=== PATIENT | female | born 1980 | race Hispanic/Latino ===

== ENCOUNTER 2018-01-10 11:25 | Emergency (ER) | payer OTHER, SELFPAY ==
--- NOTE | 2018-01-10 13:28 | RAD REPORT ---
EXAM DESCRIPTION: Lumbar Spine 3 Views CLINICAL HISTORY: Radiculopathy COMPARISON: None. FINDINGS: Vertebral body heights appear maintained. No compression fracture noted. Prominent disc th inning is present with endplate osteophytes endplate sclerosis at L5-S1. Mild disc thinning with post erior osteophyte noted at L3-4 and L4-5. No spondylolysis or spondylolisthesis. IMPRESSION: No acute lumbar spine finding. Moderately severe spondylosis L5-S1.
[2018-01-10 13:41] LABS: Urine Bacteria NONE SEEN /HPF (<20); Urine Culture Reflex Order NOT NEEDED; Urine RBC <5 /HPF (NONE SEEN)
--- NOTE | 2018-01-10 14:04 | EDPHYS ---
Physician Documentation [facility] Name: Sal Lindsey Age: 37 yrs Sex: Female : 1980 Arrival Date: 01/10/2018 Time: 11:29 Bed 18 Private MD: Giovany Biggs ED Physician Jose Mascorro HPI: 01/10 12:00 This 37 yrs old Female presents to ER via Ambulatory with complaints of Back cp Pain. 12:00 The patient presents with pain that is acute, with no known mechanism of injury. The cp symptoms are located in the low back. 14:00 Onset: The symptoms/episode began/occurred 2 day(s) ago. cp 14:00 The pain radiates to the posterior aspect of right leg. Associated signs and symptoms: cp Pertinent negatives: abdominal pain, chest pain, constipation, fever, hematuria, incontinence, numbness, urinary retention, weakness. 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 - Social history:: Smoking status: Patient/guardian denies using tobacco. ROS: 12:05 Constitutional: Negative for body aches, chills, fever, poor PO intake. cp 12:05 Eyes: Negative for injury, pain, redness, and discharge. cp 12:05 ENT: Negative for drainage from ear(s), ear pain, sore throat, difficulty swallowing, difficulty handling secretions. 12:05 Cardiovascular: Negative for chest pain, edema, palpitations. 12:05 Respiratory: Negative for cough, shortness of breath, wheezing. 12:05 Abdomen/GI: Negative for abdominal pain, nausea, vomiting, and diarrhea, constipation, anorexia, black/tarry stool, rectal bleeding, bowel incontinence. 12:05 Back: Positive for pain at rest, pain with movement, Negative for injury or acute deformity, decreased range of motion. 12:05 : Negative for urinary symptoms, difficulty urinating, bladder incontinence, urinary incontinence. 12:05 MS/extremity: Positive for pain, of the right leg, Negative for paresthesias. 12:05 Skin: Negative for cellulitis, rash. 12:05 Neuro: Negative for gait disturbance, numbness, weakness, saddle anesthesia. 12:05 All other systems are negative. Exam: 12:12 Constitutional: The patient appears in no acute distress, alert, awake, non-toxic, well cp developed, well nourished, uncomfortable. 12:12 Head/Face: Normocephalic, atraumatic. cp 12:12 Eyes: Periorbital structures: appear normal, Conjunctiva: normal, no exudate, no injection, Sclera: no appreciated abnormality, Lids and lashes: appear normal, bilaterally. 12:12 ENT: External ear(s): are unremarkable, Nose: is normal, Mouth: Lips: moist, Oral mucosa: pink and intact, moist, Posterior pharynx: is normal, airway is patent. 12:12 Neck: External neck: is normal, ROM/movement: is normal, is supple, without pain, no range of motions limitations, no nuchal rigidity. 12:12 Chest/axilla: Inspection: normal, Palpation: is normal, no crepitus, no tenderness. 12:12 Cardiovascular: Rate: normal, Rhythm: regular. 12:12 Respiratory: the patient does not display signs of respiratory distress, Respirations: normal, no use of accessory muscles, no retractions, no splinting, no tachypnea, labored breathing, is not present, Breath sounds: are clear throughout, no decreased breath sounds, no stridor, no wheezing. 12:12 Abdomen/GI: Inspection: abdomen appears normal, Palpation: abdomen is soft and non-tender, in all quadrants, rebound tenderness, is not appreciated, voluntary guarding, is not appreciated, involuntary guarding, is not appreciated. 12:12 Back: pain, that is moderate, of the lumbar area and right low back, CVA tenderness, is absent, muscle spasm, is not present, Straight leg raises: right lower extremity illicits pain. 12:12 Musculoskeletal/extremity: Extremities: grossly normal except: noted in the posterior aspect right leg: pain. 12:12 Skin: cellulitis, is not appreciated, no rash present. 12:12 Neuro: Orientation: to person, place \T\ time. Motor: moves all fours, strength is normal, Sensation: no obvious gross deficits, Gait: is steady, at a normal pace, Deep tendon reflexes are 2+ (normal) in the right patellar, right Achilles, left patellar and left Achilles. Vital Signs: 11:40 BP 119 / 70; Pulse 85; Resp 18; Temp 98.2(TE); Pulse Ox 100% on R/A; Weight 77.11 kg; hj Height 5 ft. 9 in. (175.26 cm); Pain 9/10; 14:20 BP 126 / 87; Pulse 74; Resp 16; Temp 98.2; Pulse Ox 99% on R/A; Pain 7/10; ch 11:40 Body Mass Index 25.10 (77.11 kg, 175.26 cm) hj MDM: 11:51 Patient medically screened. cp 13:00 Differential diagnosis: Cholelithiasis ruptured disc, spinal stenosis, cauda equina, cp sciatica. 14:00 Data reviewed: vital signs, nurses notes, lab test result(s), radiologic studies, plain cp films. 14:00 Test interpretation: by ED physician or midlevel provider: plain radiologic studies. cp 14:02 Counseling: I had a detailed discussion with the patient and/or guardian regarding: the cp historical points, exam findings, and any diagnostic results supporting the discharge/admit diagnosis, lab results, radiology results, the need for outpatient follow up, a family practitioner, to return to the emergency department if symptoms worsen or persist or if there are any questions or concerns that arise at home. 01/10 12:05 Order name: Urine Microscopic Only 01/10 12:39 Order name: Urine Dipstick--Ancillary (enter results) 01/10 12:05 Order name: XRAY Lumbar Spine (3 Views); Complete Time: 13:37 cp 01/10 13:38 Interpretation: Report reviewed. 01/10 12:05 Order name: Urine Dipstick-Ancillary (obtain specimen); Complete Time: 12:40 01/10 12:39 Order name: Urine --Ancillary (enter results) 01/10 12:05 Order name: Urine Test (obtain specimen); Complete Time: 12:40 cp Administered Medications: 14:10 Drug: TORadol 60 mg Route: IM; Site: left gluteus; ch 14:23 Follow up: Response: No adverse reaction; Marked relief of symptoms ch Disposition: 01/11 10:24 Co-signature as Attending Physician, Jose Mascorro MD I agree with the assessment and madan plan of care. Disposition: 01/10/18 14:04 Discharged to Home. Impression: Low back pain, Radiculopathy, lumbosacral region. - Condition is Stable. - Discharge Instructions: Back Pain, Adult, Lumbosacral Radiculopathy, Back Exercises, [id number]. - Prescriptions for Ultracet 37.5- 325 mg Oral Tablet - take 1 tablet by ORAL route every 6 hours - for up to 5 days; do not exceed 8 tablets per day. No driving while taking medication; 20 tablet. Cyclobenzaprine 10 mg Oral Tablet - take 1 tablet by ORAL route every 8 hours As needed no driving while taking medication; 20 tablet. Medrol (Shady) 4 mg Oral Tablets, Dose Pack - take 1 tablet by ORAL route as directed - follow package instructions; 1 packet. - Work release form, Medication Reconciliation Form, Thank You Letter, Antibiotic Education, Prescription Opioid Use form. - Follow up: Giovany Biggs MD; When: 2 - 3 days; Reason: Recheck today's complaints. - Problem is new. - Symptoms have improved. Signatures: Dispatcher [employer] Shannon Miranda, Jose Beltran RN, ch, MD MD cha Joaquin, Henry, RN RN Jose Delgadillo PA PA cp
--- NOTE | 2018-01-10 14:04 | ER ---
Nurse's Notes [facility] Name: Sal Lindsey Age: 37 yrs Sex: Female : 1980 Arrival Date: 01/10/2018 Time: 11:29 Bed 18 Private MD: Giovany Biggs Diagnosis: Low back pain;Radiculopathy, lumbosacral region Presentation: 01/10 11:37 Presenting complaint: Patient states: I have this R lower back pain that moves to my R hj leg that started Sunday this week; denies fever, reports cold sweats; denies nausea and vomiting;. Transition of care: patient was not received from another setting of care. Onset of symptoms was January 10, 2018. Care prior to arrival: None. 11:37 Method Of Arrival: Ambulatory 11:37 Acuity: SABRINA 3 hj Triage Assessment: 11:39 General: Appears in no apparent distress. uncomfortable, Behavior is calm, cooperative, hj appropriate for age. Pain: Complains of pain in back Pain radiates to right leg. Musculoskeletal: Circulation, motion, and sensation intact. Capillary refill < 3 seconds. 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 - Social history:: Smoking status: Patient/guardian denies using tobacco. Screenin:38 Abuse screen: Denies threats or abuse. Denies injuries from another. Nutritional ch screening: No deficits noted. Tuberculosis screening: No symptoms or risk factors identified. Fall Risk None identified. Assessment: 12:38 Reassessment: Patient appears in no apparent distress at this time. Patient and/or ch family updated on plan of care and expected duration. Pain level reassessed. Patient is alert, oriented x 3, equal unlabored respirations, skin warm/dry/pink. General: Appears in no apparent distress. uncomfortable, Behavior is calm, cooperative, appropriate for age. Pain: Complains of pain in low back area, right gluteus martina and right leg Pain currently is 7 out of 10 on a pain scale. at worst was 9 out of 10 on a pain scale. Neuro: No deficits noted. Neuro: Level of Consciousness is awake, alert, obeys commands, Oriented to person, place, time, situation, Quill Stripper are equal bilaterally Moves all extremities. Full function Gait is shuffling, Speech is normal, Facial symmetry appears normal, Facial symmetry: tongue is midline, Pupils are PERRLA. Cardiovascular: No deficits noted. Respiratory: No deficits noted. Derm: Skin is pink, warm \T\ dry. Musculoskeletal: Circulation, motion, and sensation intact. Capillary refill is > 3 seconds, in bilateral fingers. toes. Range of motion: pt has full ROM but c/o pain with movement. 14:20 Reassessment: Patient appears in no apparent distress at this time. No changes from previously documented assessment. Patient and/or family updated on plan of care and expected duration. Pain level reassessed. Patient is alert, oriented x 3, equal unlabored respirations, skin warm/dry/pink. Vital Signs: 11:40 BP 119 / 70; Pulse 85; Resp 18; Temp 98.2(TE); Pulse Ox 100% on R/A; Weight 77.11 kg; hj Height 5 ft. 9 in. (175.26 cm); Pain 9/10; 14:20 BP 126 / 87; Pulse 74; Resp 16; Temp 98.2; Pulse Ox 99% on R/A; Pain 7/10; ch 11:40 Body Mass Index 25.10 (77.11 kg, 175.26 cm) ED Course: 11:29 Patient arrived in ED. mr 11:29 Giovany Biggs MD is Private Physician. mr 11:38 Triage completed. hj 11:40 Arm band placed on left wrist. hj 11:51 Jose Waters [facility] is [facility]. cp 11:51 Jose Mascorro MD is Attending Physician. cp 12:30 Myra Oliveira, RN is Primary Nurse. iw 12:34 Radiology exam delayed due to test not completed at this time. sw 12:37 Shannon Tirado, MIRIAM is Primary Nurse. ch 12:38 No apparent distress. Resting quietly. ch 12:38 Patient has correct armband on for positive identification. Bed in low position. Call light in reach. Side rails up X 1. Adult w/ patient. Pulse ox on. NIBP on. 12:38 No provider procedures requiring assistance completed. Urine collected: clean catch specimen, clear. 13:09 Patient moved to radiology via wheelchair. 13:14 XRAY Lumbar Spine (3 Views) In Process Unspecified. EDMS 14:03 Giovany Biggs MD is Referral Physician. cp 14:20 Patient did not have IV access during this emergency room visit. Administered Medications: 14:10 Drug: TORadol 60 mg Route: IM; Site: left gluteus; 14:23 Follow up: Response: No adverse reaction; Marked relief of symptoms Outcome: 14:04 Discharge ordered by MD. cp 14:20 Discharged to home ambulatory, with family. 14:20 Condition: stable 14:20 Discharge instructions given to patient, Instructed on discharge instructions, follow up and referral plans. medication usage, Demonstrated understanding of instructions, follow-up care, medications, Prescriptions given X 3. 14:28 Patient left the ED. Signatures: Dispatcher [employer] EDWI Shannon Tirado, Estela Coker RN, ch, Irene, RN Kathie Sanchez Wally Florentino RN RN hj Page, Corey, PA PA cp Corrections: (The following items were deleted from the chart) 11:42 11:40 Pulse 85bpm; Resp 18bpm; Pulse Ox 100% RA; Temp 98.2F Temporal; 77.11 kg; Height hj 5 ft. 9 in.; BMI: 25.1; Pain 9/10; hj
[2018-01-10] MEDS ORDERED: KETOROLAC 30 MG/ML INJ ONE (14:35)
[2018-01-10 15:08] LABS: Urine Blood NEGATIVE (NEG); Urine Glucose NEGATIVE (NEG); Urine Protein NEGATIVE (NEG)
== END 2018-01-10 14:28 | disposition home or self-care (01) ==
LOC: ER 11:25
DX: M54.17 Radiculopathy, lumbosacral region (principal); E11.9 Type 2 diabetes mellitus without complications
CPT/HCPCS: 72100; 81003; 81015; 81025; 96372; 99284

== ENCOUNTER 2018-12-27 13:29 | Emergency (ER) | payer OTHER ==
--- NOTE | 2018-12-27 15:04 | EDPHYS ---
Physician Documentation [facility] Name: Sal Lindsey Age: 38 yrs Sex: Female : 1980 Arrival Date: 12/27/2018 Time: 13:30 Bed 11 Private MD: KAMRAN Physician Jose Mascorro HPI: 12/27 14:47 This 38 yrs old Female presents to ER via Ambulatory with complaints of Back kb Pain. 14:47 The patient presents with pain that is acute. The symptoms are located in the low back. kb Onset: The symptoms/episode began/occurred 3 day(s) ago. The pain does not radiate. Associated signs and symptoms: The patient has no apparent associated signs or symptoms. The problem was sustained when lifting heavy object. Modifying factors: The patient symptoms are alleviated by nothing, the patient symptoms are aggravated by any movement. Severity of symptoms: At their worst the symptoms were moderate, in the emergency department the symptoms are unchanged. The patient has not experienced similar symptoms in the past. The patient has not recently seen a physician. 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 - Social history:: Smoking status: Patient/guardian denies using tobacco. - Ebola Screening: : Patient negative for fever greater than or equal to 101.5 degrees Fahrenheit, and additional compatible Ebola Virus Disease symptoms Patient denies exposure to infectious person Patient denies travel to an Ebola-affected area in the 21 days before illness onset No symptoms or risks identified at this time. ROS: 14:46 Constitutional: Negative for fever, chills, and weight loss, ENT: Negative for injury, kb pain, and discharge, Neck: Negative for injury, pain, and swelling, Cardiovascular: Negative for chest pain, palpitations, and edema, Respiratory: Negative for shortness of breath, cough, wheezing, and pleuritic chest pain, Abdomen/GI: Negative for abdominal pain, nausea, vomiting, diarrhea, and constipation, : Negative for injury, bleeding, discharge, and swelling, MS/Extremity: Negative for injury and deformity, Skin: Negative for injury, rash, and discoloration, Neuro: Negative for headache, weakness, numbness, tingling, and seizure. 14:46 Back: Positive for pain at rest, pain with movement, of the low back area, Negative for injury or acute deformity, decreased range of motion, radiated pain. Exam: 14:46 Constitutional: This is a well developed, well nourished patient who is awake, alert, kb and in no acute distress. Head/Face: Normocephalic, atraumatic. ENT: Nares patent. No nasal discharge, no septal abnormalities noted. Tympanic membranes are normal and external auditory canals are clear. Oropharynx with no redness, swelling, or masses, exudates, or evidence of obstruction, uvula midline. Mucous membranes moist. Neck: Trachea midline, no thyromegaly or masses palpated, and no cervical lymphadenopathy. Supple, full range of motion without nuchal rigidity, or vertebral point tenderness. No Meningismus. Chest/axilla: Normal chest wall appearance and motion. Nontender with no deformity. No lesions are appreciated. Cardiovascular: Regular rate and rhythm with a normal S1 and S2. No gallops, murmurs, or rubs. Normal PMI, no JVD. No pulse deficits. Respiratory: Lungs have equal breath sounds bilaterally, clear to auscultation and percussion. No rales, rhonchi or wheezes noted. No increased work of breathing, no retractions or nasal flaring. Abdomen/GI: Soft, non-tender, with normal bowel sounds. No distension or tympany. No guarding or rebound. No evidence of tenderness throughout. Skin: Warm, dry with normal turgor. Normal color with no rashes, no lesions, and no evidence of cellulitis. MS/ Extremity: Pulses equal, no cyanosis. Neurovascular intact. Full, normal range of motion. Neuro: Awake and alert, GCS 15, oriented to person, place, time, and situation. Cranial nerves II-XII grossly intact. Motor strength 5/5 in all extremities. Sensory grossly intact. Cerebellar exam normal. Normal gait. 14:46 Back: pain, that is moderate, of the low back area, ROM is painful, with all movement, normal spinal alignment noted. Vital Signs: 13:51 BP 113 / 72; Pulse 84; Resp 16; Temp 99.5(O); Pulse Ox 100% ; Weight 85.28 kg; Height 5 ch ft. 9 in. (175.26 cm); Pain 8/10; 13:51 Body Mass Index 27.76 (85.28 kg, 175.26 cm) ch MDM: 13:56 Patient medically screened. kb 14:46 Data reviewed: vital signs, nurses notes. Data interpreted: Pulse oximetry: on room air kb is 100 %. Interpretation: normal. 14:49 Counseling: I had a detailed discussion with the patient and/or guardian regarding: the kb historical points, exam findings, and any diagnostic results supporting the discharge/admit diagnosis, the need for outpatient follow up, a family practitioner, to return to the emergency department if symptoms worsen or persist or if there are any questions or concerns that arise at home. 12/27 15:08 Order name: Urine Dipstick--Ancillary (enter results) eb 12/27 15:08 Order name: Urine --Ancillary (enter results) 12/27 14:46 Order name: Urine Dipstick-Ancillary (obtain specimen); Complete Time: 15:08 kb Administered Medications: No medications were administered Disposition: 12/27/18 15:03 Discharged to Home. Impression: Low back pain. - Condition is Stable. - Discharge Instructions: Back Injury Prevention, [id number]-[id number], Back Pain, Adult, Fvuu-[id number], Back Exercises, Mlaf-tg-[id number]. - Prescriptions for Cyclobenzaprine 10 mg Oral Tablet - take 1 tablet by ORAL route every 8 hours As needed; 21 tablet. Diclofenac Sodium 75 mg Oral Tablet, Delayed Release (E.C.) - take 1 tablet by ORAL route 2 times per day As needed; 30 tablet. - Medication Reconciliation Form, Thank You Letter, Antibiotic Education, Prescription Opioid Use form. - Follow up: Emergency Department; When: As needed; Reason: Worsening of condition. Follow up: Private Physician; When: 2 - 3 days; Reason: Recheck today's complaints, Continuance of care, Re-evaluation by your physician. Addendum: 12/30/2018 07:10 Co-signature as Attending Physician, Jose Mascorro MD I agree with the assessment and c mccoy plan of care. Signatures: Dispatcher [employer] Mireya Desouza, POWER GENERATION PLANT OPERATOR-C POWER GENERATION PLANT OPERATOR-Ckb Shannon Tirado, RN RN ch Jose Mascorro MD MD cha Vicente, Ronaldo, RN RN rv Corrections: (The following items were deleted from the chart) 12/27 15:11 15:03 12/27/2018 15:03 Discharged to Home. Impression: Low back pain. Condition is rv Stable. Discharge Instructions: Back Injury Prevention, Pktw-dt-Ckov, Back Pain, Adult, Uogx-td-Uyfi, Back Exercises, Tioo-rv-Fyss. Prescriptions for Cyclobenzaprine 10 mg Oral Tablet - take 1 tablet by ORAL route every 8 hours As needed; 21 tablet, Diclofenac Sodium 75 mg Oral Tablet, Delayed Release (E.C.) - take 1 tablet by ORAL route 2 times per day As needed; 30 tablet. and Forms are Medication Reconciliation Form, Thank You Letter, Antibiotic Education, Prescription Opioid Use. Follow up: Emergency Department; When: As needed; Reason: Worsening of condition. Follow up: Private Physician; When: 2 - 3 days; Reason: Recheck today's complaints, Continuance of care, Re-evaluation by your physician. kb
--- NOTE | 2018-12-27 15:04 | ER ---
Nurse's Notes [facility] Name: Sal Lindsey Age: 38 yrs Sex: Female : 1980 Arrival Date: 12/27/2018 Time: 13:30 Bed 11 Private MD: Diagnosis: Low back pain Presentation: 12/27 13:50 Presenting complaint: Patient states: back pain for 3 days. denies urinary symptoms or ch trauma. Transition of care: patient was not received from another setting of care. Onset of symptoms was December 24, 2018. Risk Assessment: Do you want to hurt yourself or someone else? Patient reports no desire to harm self or others. Initial Sepsis Screen: Does the patient meet any 2 criteria? No. Patient's initial sepsis screen is negative. Does the patient have a suspected source of infection? No. Patient's initial sepsis screen is negative. Care prior to arrival: None. 13:50 Method Of Arrival: Ambulatory 13:50 Acuity: SABRINA 4 Triage Assessment: 13:51 General: Appears in no apparent distress. comfortable, Behavior is calm, cooperative. Pain: Complains of pain in low back area Pain currently is 8 out of 10 on a pain scale. Aggravated by exercise, increased activity, repositioning. 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 - Social history:: Smoking status: Patient/guardian denies using tobacco. - Ebola Screening: : Patient negative for fever greater than or equal to 101.5 degrees Fahrenheit, and additional compatible Ebola Virus Disease symptoms Patient denies exposure to infectious person Patient denies travel to an Ebola-affected area in the 21 days before illness onset No symptoms or risks identified at this time. Screenin:10 Abuse screen: Denies threats or abuse. Denies injuries from another. Nutritional rv screening: No deficits noted. Tuberculosis screening: No symptoms or risk factors identified. Fall Risk None identified. Assessment: 15:08 General: Appears in no apparent distress. comfortable, Behavior is calm, cooperative. rv Pain: Complains of pain in back. Neuro: Level of Consciousness is awake, alert, obeys commands, Oriented to person, place, time, situation. Cardiovascular: Capillary refill < 3 seconds. Respiratory: Airway is patent. GI: No signs and/or symptoms were reported involving the gastrointestinal system. : No signs and/or symptoms were reported regarding the genitourinary system. EENT: No signs and/or symptoms were reported regarding the EENT system. Derm: Skin is intact. Musculoskeletal: Reports pain in back. Vital Signs: 13:51 BP 113 / 72; Pulse 84; Resp 16; Temp 99.5(O); Pulse Ox 100% ; Weight 85.28 kg; Height 5 ch ft. 9 in. (175.26 cm); Pain 8/10; 13:51 Body Mass Index 27.76 (85.28 kg, 175.26 cm) ED Course: 13:30 Patient arrived in ED. as 13:50 Triage completed. 13:51 Arm band placed on left wrist. Patient placed in an exam room, on a stretcher. 13:56 Mireya aMn FNP-C is [facility]. kb 13:56 Jose Mascorro MD is Attending Physician. kb 13:59 Myra Oliveira, RN is Primary Nurse. iw 15:10 Patient has correct armband on for positive identification. Call light in reach. Side rv rails up X 1. Adult w/ patient. Pulse ox on. NIBP on. 15:11 No provider procedures requiring assistance completed. Patient did not have IV access rv during this emergency room visit. Administered Medications: No medications were administered Outcome: 15:03 Discharge ordered by MD. kb 15:11 Discharged to home ambulatory. rv 15:11 Condition: good 15:11 Discharge instructions given to patient, Instructed on discharge instructions, follow up and referral plans. medication usage, Demonstrated understanding of instructions, follow-up care, medications, Prescriptions given X 2. 15:11 Patient left the ED. rv Signatures: Mireya Man FNP-C FNP-Shannon Amador RN MIRIAM Jesenia Motta as Myra Oliveira RN RN Kyree Monae RN RN rv
[2018-12-27 15:15] LABS: Urine Blood 3+ (NEG); Urine Glucose NEGATIVE (NEG); Urine Protein NEGATIVE (NEG); Urine Specific Gravity 1.025 (1.005-1.030); Urine pH 5.5 (5.0-7.0)
== END 2018-12-27 15:11 | disposition home or self-care (01) ==
LOC: ER 13:29
DX: M54.5 Low back pain (principal); E11.9 Type 2 diabetes mellitus without complications; Z79.84 Long term (current) use of oral hypoglycemic drugs
CPT/HCPCS: 81003; 81025; 99283

== ENCOUNTER 2019-03-19 12:39 | Emergency (ER) | payer OTHER ==
[2019-03-19] MEDS ORDERED: ALBUTEROL 2.5 MG/3 ML NEB SOL ONE (13:27)
[2019-03-19] MEDS ORDERED: IPRATROPIUM BROM 0.5MG/2.5ML ONE ×2 (13:27→13:32)
[2019-03-19 13:50] LABS: Absolute Monocytes 0.7 K/uL (0.1-1.3); Absolute Neutrophil 6.5 K/uL (1.8-8.0); Basophils % 0.2 % (0-1.3); Hematocrit 37.6 % (36.0-45.0); Lymphocytes % 12.2 % (15.3-44.8); MPV 8.7 fL (7.6-11.3); Monocytes % 8.7 % (3.3-12.3); RBC Red Blood Cell Count 4.43 M/uL (3.86-4.86)
[2019-03-19 14:10] LABS: Potassium 3.7 mmol/L (3.5-5.1)
--- NOTE | 2019-03-19 14:48 | RAD REPORT ---
EXAM DESCRIPTION: Eddie Pa And Lat (2 Views)03/19/2019 2:41 pm CLINICAL HISTORY: Shortness of breath COMPARISON: None FINDINGS: Mild right middle lobe opacity suspected Left lung is clear. The heart is normal size IMPRESSION: Mild right middle lobe pneumonia suspected
[2019-03-19 14:50] LABS: Urine Blood 3+ (NEG); Urine Glucose NEGATIVE (NEG); Urine Protein 2+ (NEG); Urine Specific Gravity 1.025 (1.005-1.030)
--- NOTE | 2019-03-19 15:10 | EDPHYS ---
Physician Documentation [facility] Name: Sal Lindsey Age: 38 yrs Sex: Female : 1980 Arrival Date: 03/19/2019 Time: 12:43 Bed X-Ray Private MD: Giovany Biggs ED Physician Derrick Trejo HPI: 03/19 14:09 This 38 yrs old Female presents to ER via Ambulatory with complaints of Fever, kb Breathing Difficulty. 14:09 The patient or guardian reports cough, that is intermittent, described as mild, with no kb sputum, difficulty breathing, flu symptoms, low-grade fever. 14:10 Onset: The symptoms/episode began/occurred 3 day(s) ago. Severity of symptoms: At their kb worst the symptoms were moderate, in the emergency department the symptoms are unchanged. Modifying factors: The symptoms are alleviated by nothing, the symptoms are aggravated by nothing. Associated signs and symptoms: Pertinent positives: fever, Pertinent negatives: chest pain, diarrhea, ear ache, nausea, rhinorrhea, sore throat, vomiting. The patient has not experienced similar symptoms in the past. The patient has not recently seen a physician. Pt reports this is day three of fever, chills, shortness of breath. Attests to slight cough. Used albuterol inhaler with no relief. 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 - Social history:: Smoking status: Patient/guardian denies using tobacco. - Ebola Screening: : Patient negative for fever greater than or equal to 101.5 degrees Fahrenheit, and additional compatible Ebola Virus Disease symptoms Patient denies exposure to infectious person Patient denies travel to an Ebola-affected area in the 21 days before illness onset No symptoms or risks identified at this time. ROS: 14:08 ENT: Negative for injury, pain, and discharge, Neck: Negative for injury, pain, and kb swelling, Cardiovascular: Negative for chest pain, palpitations, and edema, Abdomen/GI: Negative for abdominal pain, nausea, vomiting, diarrhea, and constipation, Back: Negative for injury and pain, : Negative for injury, bleeding, discharge, and swelling, MS/Extremity: Negative for injury and deformity, Skin: Negative for injury, rash, and discoloration, Neuro: Negative for headache, weakness, numbness, tingling, and seizure. 14:08 Constitutional: Positive for chills, fever, Negative for body aches, fatigue, malaise, poor PO intake, weight loss. 14:08 Respiratory: Positive for cough, with no reported sputum, shortness of breath. Exam: 14:08 Constitutional: This is a well developed, well nourished patient who is awake, alert, kb and in no acute distress. Head/Face: Normocephalic, atraumatic. ENT: Nares patent. No nasal discharge, no septal abnormalities noted. Tympanic membranes are normal and external auditory canals are clear. Oropharynx with no redness, swelling, or masses, exudates, or evidence of obstruction, uvula midline. Mucous membranes moist. Neck: Trachea midline, no thyromegaly or masses palpated, and no cervical lymphadenopathy. Supple, full range of motion without nuchal rigidity, or vertebral point tenderness. No Meningismus. Chest/axilla: Normal chest wall appearance and motion. Nontender with no deformity. No lesions are appreciated. Cardiovascular: Regular rate and rhythm with a normal S1 and S2. No gallops, murmurs, or rubs. Normal PMI, no JVD. No pulse deficits. Respiratory: Lungs have equal breath sounds bilaterally, clear to auscultation and percussion. No rales, rhonchi or wheezes noted. No increased work of breathing, no retractions or nasal flaring. Abdomen/GI: Soft, non-tender, with normal bowel sounds. No distension or tympany. No guarding or rebound. No evidence of tenderness throughout. Skin: Warm, dry with normal turgor. Normal color with no rashes, no lesions, and no evidence of cellulitis. MS/ Extremity: Pulses equal, no cyanosis. Neurovascular intact. Full, normal range of motion. Neuro: Awake and alert, GCS 15, oriented to person, place, time, and situation. Cranial nerves II-XII grossly intact. Motor strength 5/5 in all extremities. Sensory grossly intact. Cerebellar exam normal. Normal gait. Vital Signs: 12:46 BP 113 / 65; Pulse 93; Resp 18; Temp 97.6(TE); Pulse Ox 100% on R/A; Weight 85.28 kg; hj Height 5 ft. 9 in. (175.26 cm); Pain 0/10; 12:46 Body Mass Index 27.76 (85.28 kg, 175.26 cm) hj MDM: 12:52 Patient medically screened. kb 14:09 Data reviewed: vital signs, nurses notes. Data interpreted: Pulse oximetry: on room air kb is 100 %. Interpretation: normal. 14:57 Counseling: I had a detailed discussion with the patient and/or guardian regarding: the kb historical points, exam findings, and any diagnostic results supporting the discharge/admit diagnosis, lab results, radiology results, the need for outpatient follow up, a family practitioner, to return to the emergency department if symptoms worsen or persist or if there are any questions or concerns that arise at home. 03/19 13:06 Order name: CBC with Diff; Complete Time: 13:54 kb 03/19 13:06 Order name: Basic Metabolic Panel; Complete Time: 14:14 kb 03/19 13:06 Order name: Flu; Complete Time: 15:16 kb 03/19 13:49 Order name: Urine Dipstick--Ancillary (enter results); Complete Time: 14:52 bd 03/19 13:49 Order name: Urine --Ancillary (enter results); Complete Time: 14:52 bd 03/19 14:53 Order name: Blood Culture Adult (2) kb 03/19 13:06 Order name: Urine Dipstick-Ancillary (obtain specimen); Complete Time: 13:33 kb 03/19 13:06 Order name: IV Start; Complete Time: 13:33 kb 03/19 13:06 Order name: Chest Pa And Lat (2 Views) XRAY; Complete Time: 14:52 kb Administered Medications: 13:02 Drug: Zithromax 500 mg Route: PO; ls4 13:20 Follow up: Response: No adverse reaction ls4 13:05 Drug: Rocephin 1 grams Route: IV; Rate: calculated rate; Site: right antecubital; ls4 13:15 Follow up: IV Status: Completed infusion; IV Intake: 10ml ls4 13:30 Follow up: Response: No adverse reaction ls4 13:20 Drug: DuoNeb (3:1) (2.5 mg - 0.5 mg) 3 ml Route: Nebulizer; ls4 13:50 Follow up: Response: No adverse reaction; Marked relief of symptoms ls4 15:02 Drug: NS 0.9% 1000 ml Route: IV; Rate: 1000 ml; Site: right antecubital; ls4 17:15 Follow up: IV Intake: 1000ml ls4 Disposition: 03/19/19 15:09 Discharged to Home. Impression: Pneumonia, unspecified organism. - Condition is Stable. - Discharge Instructions: Community-Acquired Pneumonia, Adult, [id number]. - Prescriptions for Augmentin 875- 125 mg Oral Tablet - take 1 tablet by ORAL route every 12 hours for 10 days; 20 tablet. Zithromax 500 mg Oral Tablet - take 1 tablet by ORAL route once daily for 5 days; 5 tablet. - Medication Reconciliation Form, Thank You Letter, Antibiotic Education, Prescription Opioid Use form. - Follow up: Emergency Department; When: As needed; Reason: Worsening of condition. Follow up: Giovany Biggs MD; When: 2 - 3 days; Reason: Recheck today's complaints, Continuance of care, Re-evaluation by your physician. Signatures: Dispatcher [employer] EDMireya Masters, WAREHOUSE HAND-C WAREHOUSE HAND-CkWally Kearney, RN RN Paz Castillo RN RN ls4 Corrections: (The following items were deleted from the chart) 17:26 15:09 03/19/2019 15:09 Discharged to Home. Impression: Pneumonia, unspecified organism. ls4 Condition is Stable. Forms are Medication Reconciliation Form, Thank You Letter, Antibiotic Education, Prescription Opioid Use. Follow up: Emergency Department; When: As needed; Reason: Worsening of condition. Follow up: Giovany Biggs; When: 2 - 3 days; Reason: Recheck today's complaints, Continuance of care, Re-evaluation by your physician. kb
--- NOTE | 2019-03-19 15:10 | ER ---
Nurse's Notes [facility] Name: Sal Lindsey Age: 38 yrs Sex: Female : 1980 Arrival Date: 03/19/2019 Time: 12:43 Bed X-Ray Private MD: Giovany Biggs Diagnosis: Pneumonia, unspecified organism Presentation: 03/19 12:44 Presenting complaint: Patient states: i felt dizzy 2 days ago and fever and chills 2 hj days ago; reports cough and nausea; denies abd pain;. Transition of care: patient was not received from another setting of care. Onset of symptoms was March 19, 2019. Risk Assessment: Do you want to hurt yourself or someone else? Patient reports no desire to harm self or others. Initial Sepsis Screen: Does the patient meet any 2 criteria? No. Patient's initial sepsis screen is negative. Does the patient have a suspected source of infection? No. Patient's initial sepsis screen is negative. Care prior to arrival: None. 12:44 Method Of Arrival: Ambulatory 12:44 Acuity: SABRINA 3 Triage Assessment: 13:02 General: Appears in no apparent distress. Behavior is calm, cooperative. Pain: Denies ls4 pain. Neuro: No deficits noted. Cardiovascular: No deficits noted. Respiratory: Reports shortness of breath since 2 days. Musculoskeletal: No deficits noted. 13:06 Respiratory: Onset: The symptoms/episode began/occurred gradually, the patient has ls4 moderate shortness of breath. 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 - Social history:: Smoking status: Patient/guardian denies using tobacco. - Ebola Screening: : Patient negative for fever greater than or equal to 101.5 degrees Fahrenheit, and additional compatible Ebola Virus Disease symptoms Patient denies exposure to infectious person Patient denies travel to an Ebola-affected area in the 21 days before illness onset No symptoms or risks identified at this time. Screenin:04 Abuse screen: Denies threats or abuse. Denies injuries from another. Nutritional ls4 screening: No deficits noted. Tuberculosis screening: No symptoms or risk factors identified. Fall Risk None identified. Assessment: 12:46 Respiratory: Breath sounds are clear bilaterally. ls4 13:03 Cardiovascular: Denies chest pain, Rhythm is regular. Respiratory: Airway is patent ls4 Respiratory effort is even, unlabored, Respiratory pattern is regular. 15:50 Reassessment: fluids infusing. discharge pending fluids. ls4 Vital Signs: 12:46 BP 113 / 65; Pulse 93; Resp 18; Temp 97.6(TE); Pulse Ox 100% on R/A; Weight 85.28 kg; hj Height 5 ft. 9 in. (175.26 cm); Pain 0/10; 12:46 Body Mass Index 27.76 (85.28 kg, 175.26 cm) hj ED Course: 12:43 Patient arrived in ED. mr 12:43 Giovany Biggs MD is Private Physician. mr 12:45 Triage completed. hj 12:46 Arm band placed on right wrist. hj 12:51 [facility]. kb 12:51 Derrick Trejo MD is Attending Physician. kb 12:57 Paz Doan, MIRIAM is Primary Nurse. ls4 13:04 Patient has correct armband on for positive identification. Bed in low position. Call ls4 light in reach. Side rails up X 1. Pulse ox on. NIBP on. Warm blanket given. Verbal reassurance given. 13:04 No provider procedures requiring assistance completed. ls4 13:20 Inserted saline lock: 20 gauge in right antecubital area, using aseptic technique. ls4 Blood collected. 13:20 Initial lab(s) drawn, by vt, sent to lab. ls4 14:09 Patient moved to radiology via wheelchair. ls3 14:43 Chest Pa And Lat (2 Views) XRAY In Process Unspecified. EDMS 15:09 Giovany Biggs MD is Referral Physician. kb 17:25 IV discontinued, intact, bleeding controlled, No redness/swelling at site. Pressure ls4 dressing applied. Administered Medications: 13:02 Drug: Zithromax 500 mg Route: PO; ls4 13:20 Follow up: Response: No adverse reaction ls4 13:05 Drug: Rocephin 1 grams Route: IV; Rate: calculated rate; Site: right antecubital; ls4 13:15 Follow up: IV Status: Completed infusion; IV Intake: 10ml ls4 13:30 Follow up: Response: No adverse reaction ls4 13:20 Drug: DuoNeb (3:1) (2.5 mg - 0.5 mg) 3 ml Route: Nebulizer; ls4 13:50 Follow up: Response: No adverse reaction; Marked relief of symptoms ls4 15:02 Drug: NS 0.9% 1000 ml Route: IV; Rate: 1000 ml; Site: right antecubital; ls4 17:15 Follow up: IV Intake: 1000ml ls4 Intake: 13:15 IV: 10ml; Total: 10ml. ls4 17:15 IV: 1000ml; Total: 1010ml. ls4 Outcome: 15:09 Discharge ordered by . kb 17:26 Patient left the ED. ls4 17:26 Discharged to home ambulatory, with family. ls4 17:26 Condition: good 17:26 Discharge instructions given to patient, family, Instructed on discharge instructions, follow up and referral plans. medication usage, safety practices, Demonstrated understanding of instructions, follow-up care, medications, Prescriptions given X 2. Signatures: Dispatcher [employer] EDMS Mireya Man, KILN LOADERPaty KILN LOADER-Gonzalo UmanzoraYen mr FlorentinoWally, RN RN Kelsie Roman ls3 Paz Doan RN RN ls4 Corrections: (The following items were deleted from the chart) 12:48 12:46 Pulse 93bpm; Resp 18bpm; Pulse Ox 100% RA; Temp 97.6F Temporal; 85.28 kg; Height hj 5 ft. 9 in.; BMI: 27.7; Pain 0/10; hj 19:05 16:36 IV Intake: 1000ml ls4 ls4
[2019-03-19] MEDS ORDERED: CEFTRIAXONE/SWI 1gm 1 GM/10 ML SYR ONE (15:18)
[2019-03-19] MEDS ORDERED: AZITHROMYCIN 250 MG TAB ONE (15:18)
[2019-03-19] MEDS ORDERED: NA CHLORIDE 0.9% 1,000 ML ONE (15:36)
== END 2019-03-19 17:26 | disposition home or self-care (01) ==
LOC: ER 12:39
DX: J18.9 Pneumonia, unspecified organism (principal); E11.9 Type 2 diabetes mellitus without complications
CPT/HCPCS: 36415; 71046; 80048; 81003; 81025; 85025; 87040; 87205; 87804; 94640; 96374; 99284; J0696; J7030

== ENCOUNTER 2021-04-06 19:51 | Emergency (ER) | payer BC ==
[2021-04-06] MEDS ORDERED: MORPHINE 4 MG/ML SYR ONE (21:39)
[2021-04-06] MEDS ORDERED: ONDANSETRON 4 MG/2 ML VIAL ONE (21:39)
[2021-04-06] MEDS ORDERED: NA CHLORIDE 0.9% 100 ML ONE (21:39)
[2021-04-06] MEDS ORDERED: NA CHLORIDE 0.9% 1,000 ML ONE (21:40)
[2021-04-06] MEDS ORDERED: PIPERACIL/TAZO 3.375 GM VIAL IV ONE (21:40)
[2021-04-06] MEDS ORDERED: D5.45NS W/KCL 20MEQ 1,000 ML IV ONE (21:40)
[2021-04-06 21:42] LABS: Absolute Lymphocytes (CBC) 1.6 K/uL (0.7-4.9); Basophils % 0.3 % (0-1.3); Hematocrit 37.6 % (36.0-45.0); MPV 8.1 fL (7.6-11.3); RBC Red Blood Cell Count 4.23 M/uL (3.86-4.86)
[2021-04-06 21:58] LABS: ALT/SGPT 21 U/L (12-78); AST/SGOT 15 U/L (15-37); Albumin 3.4 g/dL (3.4-5.0); Alkaline Phosphatase 57 U/L (45-117); BUN Blood Urea Nitrogen 10 mg/dL (7-18); Bicarbonate 28 mmol/L (21-32); Bilirubin Direct < 0.1 mg/dL (0-0.2); Bilirubin Total 0.2 mg/dL (0.2-1.0); Glucose Level 84 mg/dL (74-106); Lipase 45 U/L (73-393); Potassium 3.8 mmol/L (3.5-5.1); Protein, Total 7.3 g/dL (6.4-8.2); Sodium Level 140 mmol/L (136-145)
[2021-04-06] MEDS ORDERED: HYDROMORPHONE HCL 1 MG/ML INJ ONE (23:35)
--- NOTE | 2021-04-06 23:52 | EDPHYS ---
Physician Documentation [facility] Name: Sal Lindsey Age: 40 yrs Sex: Female : 1980 Arrival Date: 04/06/2021 Time: 19:54 Bed 16 Private MD: Giovany Biggs ED Physician Jesse Saunders HPI: 04/06 21:09 This 40 yrs old Female presents to ER via Ambulatory with complaints of Flank ma2 Pain, Abdominal Pain. 21:09 Onset: The symptoms/episode began/occurred gradually, 2 day(s) ago. Associated signs ma2 and symptoms: Pertinent negatives: dysuria, headache, nausea, pain radiating to the lower extremities. Severity of pain: At its worst the pain was mild in the emergency department the pain is unchanged. The patient has not experienced similar symptoms in the past. rlq abd pain. Historical: - Allergies: 20:14 No Known Allergies; bs2 - Home Meds: 20:14 metformin 500 mg Oral tr24 1 tab twice a day [Active]; bs2 - PMHx: 20:14 Diabetes - NIDDM; bs2 - PSHx: 20:14 Lumpectomy of breast; Thyroidectomy; back; bs2 - Immunization history:: Adult Immunizations Client reports receiving the 2nd dose of the Covid vaccine, Flu vaccine is up to date. - Social history:: Smoking status: Patient denies any tobacco usage or history of. Patient uses Patient/guardian denies using alcohol, street drugs, The patient lives with family. - Family history:: not pertinent. ROS: 21:09 Constitutional: Negative for fever, chills, and weight loss. ma2 21:09 All other systems are negative. Exam: 21:09 Constitutional: This is a well developed, well nourished patient who is awake, alert, ma2 and in no acute distress. Eyes: Pupils equal round and reactive to light, extra-ocular motions intact. Lids and lashes normal. Conjunctiva and sclera are non-icteric and not injected. Cornea within normal limits. Periorbital areas with no swelling, redness, or edema. Neck: Trachea midline, no thyromegaly or masses palpated, and no cervical lymphadenopathy. Supple, full range of motion without nuchal rigidity, or vertebral point tenderness. No Meningismus. Chest/axilla: Normal chest wall appearance and motion. Nontender with no deformity. No lesions are appreciated. Cardiovascular: Regular rate and rhythm with a normal S1 and S2. No gallops, murmurs, or rubs. Normal PMI, no JVD. No pulse deficits. Respiratory: Lungs have equal breath sounds bilaterally, clear to auscultation and percussion. No rales, rhonchi or wheezes noted. No increased work of breathing, no retractions or nasal flaring. Abdomen/GI: rlq abdominal tenderness , with normal bowel sounds. No distension or tympany. No guarding or rebound. . Vital Signs: 20:12 BP 109 / 80; Pulse 85; Resp 18; Temp 98.8(T); Pulse Ox 100% on R/A; Weight 90.72 kg bs2 (R); Height 5 ft. 9 in. (175.26 cm) (R); Pain 8/10; 21:39 BP 112 / 65; Pulse 81; Resp 18 S; Pulse Ox 98% on R/A; ad5 23:10 BP 104 / 63; Pulse 76; Resp 16 S; Pulse Ox 100% on R/A; ad5 07 00:02 BP 102 / 66; Pulse 79; Resp 16 S; Pulse Ox 98% on R/A; ad5 04/06 20:12 Body Mass Index 29.53 (90.72 kg, 175.26 cm) 2 MDM: 04/06 21:09 Differential diagnosis: UTI, diverticulitis, pancreatitis, appendicitis. [facility] 21:[address] [facility] 23:45 Data reviewed: vital signs, nurses notes. Counseling: I had a detailed discussion with [facility] the patient and/or guardian regarding: the historical points, exam findings, and any diagnostic results supporting the discharge/admit diagnosis, the presence of at least one elevated blood pressure reading (>120/80) during this emergency department visit, radiology results. 04/06 21:09 Order name: Basic Metabolic Panel [facility] 04/06 21:09 Order name: CBC with Diff; Complete Time: 21:44 [facility] 04/06 21:09 Order name: Hepatic Function; Complete Time: 22:24 [facility] 04/06 21:09 Order name: Lipase; Complete Time: 22:24 [facility] 04/06 21:09 Order name: CT Abd/Pelvis - IV Contrast Only ca2 04/06 21:09 Order name: Basic Metabolic Panel; Complete Time: 22:24 EDMS 04/06 21:09 Order name: IV Saline Lock; Complete Time: 21:38 ma2 04/06 21:09 Order name: Labs collected and sent; Complete Time: 21:38 ma2 04/06 21:11 Order name: NPO; Complete Time: 21:37 ma2 Administered Medications: 20:31 Drug: Zofran (Ondansetron) 4 mg Route: IVP; Site: left antecubital; ad5 22:49 Follow up: Response: No adverse reaction; Nausea is decreased ad5 20:32 Drug: morphine 4 mg Route: IVP; Site: left antecubital; ad5 22:49 Follow up: Response: No adverse reaction; Pain is decreased; RASS: Alert and Calm (0) ad5 20:35 Drug: NS 0.9% 1000 ml Route: IV; Rate: 1 bolus; Site: left antecubital; ad5 04/07 00:03 Follow up: IV Status: Completed infusion; IV Intake: 700ml ad5 04/06 20:36 Drug: Zosyn (piperacillin-tazobactam) 3.375 grams Route: IVPB; Infused Over: 60 mins; ad5 Site: left antecubital; 22:05 Follow up: Response: No adverse reaction; IV Status: Completed infusion; IV Intake: ad5 100ml 22:05 Drug: Dextrose 5 % in 1/2 Normal Saline with KCl 10 mEq/L 1000 ml Route: IV; Rate: 100 ad5 ml/hr; Site: left antecubital; 04/07 00:03 Follow up: IV Status: Completed infusion; IV Intake: 250ml ad5 04/06 23:27 Drug: Dilaudid (HYDROmorphone) 1 mg Route: IVP; Site: left antecubital; ad5 04/07 00:03 Follow up: Response: No adverse reaction; Pain is decreased; RASS: Alert and Calm (0) ad5 Disposition Summary: 04/06/21 23:51 Discharge Ordered Location: Home ma2 Condition: Stable ma2 Diagnosis - Lower abdominal pain, unspecified ma2 Followup: ma2 - With: Neto Sharpe MD - When: Tomorrow - Reason: Continuance of care Followup: ma2 - With: Vinicius Damian MD - When: Tomorrow - Reason: Continuance of care Discharge Instructions: - Discharge Summary Sheet ma2 - Abdominal Pain, Adult ma2 Forms: - Medication Reconciliation Form ma2 - Thank You Letter ma2 - Antibiotic Education ma2 - Prescription Opioid Use ma2 Prescriptions: - Zofran 4 mg Oral Tablet - take 1 tablet by ORAL route every 12 hours As needed; 20 tablet; Refills: 0, ma2 Product Selection Permitted - Diclofenac Sodium 75 mg Oral Tablet Sustained Release - take 1 tablet by ORAL route 2 times per day; 30 tablet; Refills: 0, Product ma2 Selection Permitted Signatures: Dispatcher [employer] EDMS Jesse Saunders MD MD ma2 Kojo Reddy Bridget 2
--- NOTE | 2021-04-06 23:52 | ER ---
Nurse's Notes [facility] Name: Sal Lindsey Age: 40 yrs Sex: Female : 1980 Arrival Date: 04/06/2021 Time: 19:54 Bed 16 Private MD: Giovany Biggs Diagnosis: Lower abdominal pain, unspecified Presentation: 04/06 20:12 Chief complaint: Patient states: RT lower flank pain, nausea, started 3 days ago, pt bs2 had outpatient MRI done by PCP, was called and told to come to ER for possible appendicites. Chief complaint:. Coronavirus screen: Client denies travel out of the [place] in the last 14 days. At this time, the client does not indicate any symptoms associated with coronavirus-19. Ebola Screen: Patient negative for fever greater than or equal to 101.5 degrees Fahrenheit, and additional compatible Ebola Virus Disease symptoms Patient denies exposure to infectious person. Patient denies travel to an Ebola-affected area in the 21 days before illness onset. No symptoms or risks identified at this time. Initial Sepsis Screen: Does the patient meet any 2 criteria? No. Patient's initial sepsis screen is negative. Does the patient have a suspected source of infection? No. Patient's initial sepsis screen is negative. Risk Assessment: Do you want to hurt yourself or someone else? Patient reports no desire to harm self or others. Onset of symptoms was April 03, 2021. 20:12 Method Of Arrival: Ambulatory bs2 20:12 Acuity: SABRINA 3 bs2 Triage Assessment: 20:14 General: Appears uncomfortable, well groomed, well developed, well nourished, Behavior bs2 is calm, cooperative, appropriate for age. Pain: Complains of pain in right femoral area and right inguinal area Pain currently is 8 out of 10 on a pain scale. GI: Reports nausea, Pain is 8 out of 10 on a pain scale. Historical: - Allergies: 20:14 No Known Allergies; bs2 - Home Meds: 20:14 metformin 500 mg Oral tr24 1 tab twice a day [Active]; bs2 - PMHx: 20:14 Diabetes - NIDDM; bs2 - PSHx: 20:14 Lumpectomy of breast; Thyroidectomy; back; bs2 - Immunization history:: Adult Immunizations Client reports receiving the 2nd dose of the Covid vaccine, Flu vaccine is up to date. - Social history:: Smoking status: Patient denies any tobacco usage or history of. Patient uses Patient/guardian denies using alcohol, street drugs, The patient lives with family. - Family history:: not pertinent. Screenin:50 Abuse screen: Denies threats or abuse. Denies injuries from another. Nutritional ad5 screening: No deficits noted. Tuberculosis screening: No symptoms or risk factors identified. Fall Risk None identified. Assessment: 21:02 General: Appears in no apparent distress. Behavior is calm, cooperative, appropriate ad5 for age. Pain: Complains of pain in RLQ abd. Neuro: No deficits noted. Level of Consciousness is awake, alert, obeys commands, Oriented to person, place, time, situation, Appropriate for age. Cardiovascular: No deficits noted. Heart tones S1 S2 present Capillary refill < 3 seconds Patient's skin is warm and dry. Respiratory: No deficits noted. Airway is patent Respiratory effort is even, unlabored, Respiratory pattern is regular, symmetrical. GI: Bowel sounds present X 4 quads. Abdomen is tender to palpation Guarding noted Reports lower abdominal pain, nausea, Parent/caregiver reports the patient having sent from PCP after having MRI for "inflammation and dilation". : No deficits noted. No signs and/or symptoms were reported regarding the genitourinary system. Derm: Skin is pink, warm \\T\\ dry. 21:39 Reassessment: Patient appears in no apparent distress at this time. No changes from ad5 previously documented assessment. Patient and/or family updated on plan of care and expected duration. Pain level reassessed. 22:50 Reassessment: Patient appears in no apparent distress at this time. Patient is alert, ad5 oriented x 3, equal unlabored respirations, skin warm/dry/pink. Patient states symptoms have improved. 04/07 00:03 Reassessment: Patient appears in no apparent distress at this time. Patient and/or ad5 family updated on plan of care and expected duration. Pain level reassessed. Patient states symptoms have improved. Vital Signs: 04/06 20:12 BP 109 / 80; Pulse 85; Resp 18; Temp 98.8(T); Pulse Ox 100% on R/A; Weight 90.72 kg bs2 (R); Height 5 ft. 9 in. (175.26 cm) (R); Pain 8/10; 21:39 BP 112 / 65; Pulse 81; Resp 18 S; Pulse Ox 98% on R/A; ad5 23:10 BP 104 / 63; Pulse 76; Resp 16 S; Pulse Ox 100% on R/A; ad5 04/07 00:02 BP 102 / 66; Pulse 79; Resp 16 S; Pulse Ox 98% on R/A; ad5 04/06 20:12 Body Mass Index 29.53 (90.72 kg, 175.26 cm) bs2 ED Course: 04/06 19:54 Patient arrived in ED. es 19:54 Giovany Biggs MD is Private Physician. es 20:14 Triage completed. bs2 20:14 Arm band placed on right wrist. bs2 20:50 Kojo Reddy is Primary Nurse. ad5 20:50 Patient has correct armband on for positive identification. Bed in low position. Call ad5 light in reach. Side rails up X 1. Pulse ox on. NIBP on. Door closed. Noise minimized. Warm blanket given. 20:58 Jesse Saunders MD is Attending Physician. ma2 21:38 No provider procedures requiring assistance completed. Initial lab(s) drawn, by wa, ad5 sent to lab. Inserted saline lock: 20 gauge in left antecubital area, using aseptic technique. Blood collected. 22:34 CT Abd/Pelvis - IV Contrast Only In Process Unspecified. EDMS 23:51 Neto Sharpe MD is Referral Physician. ma2 23:51 Vinicius Damian MD is Referral Physician. ma2 04/07 00:04 IV discontinued, intact, bleeding controlled, No redness/swelling at site. Pressure ad5 dressing applied. Administered Medications: 04/06 20:31 Drug: Zofran (Ondansetron) 4 mg Route: IVP; Site: left antecubital; ad5 22:49 Follow up: Response: No adverse reaction; Nausea is decreased ad5 20:32 Drug: morphine 4 mg Route: IVP; Site: left antecubital; ad5 22:49 Follow up: Response: No adverse reaction; Pain is decreased; RASS: Alert and Calm (0) ad5 20:35 Drug: NS 0.9% 1000 ml Route: IV; Rate: 1 bolus; Site: left antecubital; ad5 04/07 00:03 Follow up: IV Status: Completed infusion; IV Intake: 700ml ad5 04/06 20:36 Drug: Zosyn (piperacillin-tazobactam) 3.375 grams Route: IVPB; Infused Over: 60 mins; ad5 Site: left antecubital; 22:05 Follow up: Response: No adverse reaction; IV Status: Completed infusion; IV Intake: ad5 100ml 22:05 Drug: Dextrose 5 % in 1/2 Normal Saline with KCl 10 mEq/L 1000 ml Route: IV; Rate: 100 ad5 ml/hr; Site: left antecubital; 04/07 00:03 Follow up: IV Status: Completed infusion; IV Intake: 250ml ad5 04/06 23:27 Drug: Dilaudid (HYDROmorphone) 1 mg Route: IVP; Site: left antecubital; ad5 04/07 00:03 Follow up: Response: No adverse reaction; Pain is decreased; RASS: Alert and Calm (0) ad5 Intake: 04/06 22:05 IV: 100ml; Total: 100ml. ad5 04/07 00:03 IV: 250ml; Total: 350ml. ad5 00:03 IV: 700ml; Total: 1050ml. ad5 Outcome: 04/06 23:51 Discharge ordered by . hever 04/07 00:04 Discharged to home ambulatory, with family. ad5 Condition: stable Discharge instructions given to patient, Instructed on discharge instructions, follow up and referral plans. medication usage, Demonstrated understanding of instructions, follow-up care, medications, Prescriptions given X 2. 00:04 Patient left the ED. ad5 Signatures: Dispatcher [employer] Magda Smiley Mohammad, MD MD ma2 Kojo Reddy Bridget 2
[2021-04-07 00:39] VITALS: TEMP 98.8
[2021-04-07 00:43] VITALS: BP 102/66; O2SAT 98
--- NOTE | 2021-04-07 11:06 | RAD REPORT ---
EXAM DESCRIPTION: CT Abdomen and Pelvis With Intravenous Contrast CLINICAL HISTORY: The patient is 40 years old and is Female; ABD PAIN TECHNIQUE: Axial computed tomography images of the abdomen and pelvis with intravenous contrast. S agittal and coronal reformatted images were created and reviewed. This CT exam was performed using one or more of the following dose reduction techniques: automated exposure control, adjustment of t he mA and/or kV according to patient size, and/or use of iterative reconstruction technique. COMPARISON: No relevant prior studies available. FINDINGS: LUNG BASES: Unremarkable. No mass. No consolidation. ABDOMEN: LIVER: Unremarkable. No mass. GALLBLADDER AND BILE DUCTS: The gallbladder is distended. No calcified gallstones or ductal dila tation is seen. PANCREAS: No ductal dilation. No mass. SPLEEN: Unremarkable. ADRENALS: Unremarkable. No mass. KIDNEYS AND URETERS: Unremarkable. The kidneys enhance symmetrically. No obstructing renal or ur eteral calculus is seen. No hydronephrosis or hydroureter. No perinephric fluid or stranding. STOMACH AND BOWEL: The stomach is minimally filled with fluid and air. The majority the small gian wel is decompressed. A few of the distal small bowel loops are fluid-filled. Stool and high density m aterial present throughout the colon suggesting ingested contents. There is no mucosal thickening or evidence of bowel obstruction. PELVIS: APPENDIX: No findings to suggest acute appendicitis. BLADDER: The bladder is distended with contrast. REPRODUCTIVE: Unremarkable as visualized. ABDOMEN and PELVIS: INTRAPERITONEAL SPACE: Unremarkable. No free air. No significant fluid collection. BONES/JOINTS: No acute fracture. SOFT TISSUES: The soft tissues are normal. VASCULATURE: Unremarkable. No abdominal aortic aneurysm. LYMPH NODES: Unremarkable. No enlarged lymph nodes. IMPRESSION: No acute findings on this contrasted CT of the abdomen and pelvis to explain the patie nt's symptoms. Electronically signed by: Nathalia Dickinson MD 04/06/2021 10:51 PM CDT Due to temporary technical issues with the PACS/Fluency reporting system, reports are being signed by the in house radiologist without review as a courtesy to ensure prompt reporting. The interpreting r adiologist is fully responsible for the content of the report.
== END 2021-04-07 00:04 | disposition home or self-care (01) ==
LOC: ER 19:51
DX: R10.31 Right lower quadrant pain (principal); E11.9 Type 2 diabetes mellitus without complications
CPT/HCPCS: 96365; 96367; 85025; 80048; 36415; 80076; 83690; 74177; 96375; 99284; 96366; Q9967; J2543; J1170; J7030; J2405

== ENCOUNTER 2021-04-07 14:35 | Observation (INO) | payer BC ==
[2021-04-07] MEDS ORDERED: NA CHLORIDE 0.9% 1,000 ML ONE ×2 (15:10→16:30)
[2021-04-07] MEDS ORDERED: MIDAZOLAM HCL 2 MG/2 ML INJ ONE (15:11)
[2021-04-07] MEDS ORDERED: FENTANYL CITR 100 MCG/2 ML ONE (15:11)
[2021-04-07] MEDS ORDERED: dexAMETHasone 10 MG/ML VIAL ONE (15:11)
[2021-04-07] MEDS ORDERED: propofoL 200 MG/20 ML VIAL IV ONE (15:11)
[2021-04-07] MEDS ORDERED: ROCURONIUM 50 MG/5 ML VIAL IV ONE (15:12)
[2021-04-07] MEDS ORDERED: KETOROLAC 30 MG/ML INJ ONE (15:12)
[2021-04-07] MEDS ORDERED: LIDOCAINE 1% MPF 30 ML VIAL ONE (15:12)
[2021-04-07] MEDS ORDERED: ONDANSETRON 4 MG/2 ML VIAL ONE (15:12)
[2021-04-07] MEDS ORDERED: CEFAZOLIN/SWI 1gm 1 GM/10 ML SYR ONE (15:20)
--- NOTE | 2021-04-07 15:42 | HP ---
Date of Admission: 04/07/2021 Diagnosis: Acute appendicitis. History Of Present Illness: This is the case of a 40-year-old patient, comes to us with intractable abdominal pain. Apparently, the pain started mild, about 3 days ago. It has been getting worse, yamil sea, vomiting. She has not been able to eat. She went yesterday to the primary doctor, got a CAT sc an showing acute appendicitis, sent to the ER. Apparently, the ER checked the patient once again and then the patient was discharged home. This morning, she shows once again in the primary doctor with exacerbation of symptoms. I was not in my office, but the doctor called me to see if I can see this patient today and go to my office and I agree this patient has right lower aaron drant pain with Rovsing sign positive, psoas sign positive and a CAT scan positive for appendicitis e arielle though a second repeat CAT scan could not tell you the inflammation of the appendix. Clinically, she has guarding and rebound in the right lower quadrant. The patient denies any dysuria, hematuria , hematochezia, melena. Denies any recent traveling out of the country. Denies any family members s ick at home. She has not eaten anything out of the usual and the pain is getting worse to the point right now she can barely stand straight because of the right lower quadrant. Past Medical History: Diabetes, non-insulin dependent. Past Surgical History: Surgeries include thyroid surgery, lumpectomy in the breast, and C-sections a nd lower back surgery. Social History: She does not smoke. She does not drink alcohol. Family History: Noncontributory. Allergies: NONE. Review of Systems: See above. Ten points otherwise unremarkable. Physical Examination: General: The patient is awake, alert. HEENT: Pupils are equal and reactive. Anicteric. Neck: Supple. Chest: Clear. Abdomen: Right lower quadrant tenderness with guarding and rebound. Rovsing sign positive. Psoas s ign positive. Breasts: Deferred. Rectal: Deferred. Pelvic: Deferred. Extremities: Good capillary refill. Laboratory Data: We have a CAT scan here from [facility] shows acute appendicitis. CAT scan done in t his institution later did not show that we have different areas, different reading on the CT scans. WBC count of 5.5 that was yesterday. Today due to emergency WBC count. We suspect it moy uld be higher due to the peritonitis at this moment. Assessment: Acute appendicitis. Plan: Diagnostic laparoscopy, laparoscopic possible open appendectomy. Benefits, alternatives, and risks were fully explained, which include, but not limited to infection, bleeding, damage to adjacent structures, anesthesia complication, choledocholithiasis, bile leak, pancreatitis, NV, cholelithiasi s, cholecystitis, gastritis, colitis, ovarian cyst, all those we might find in diagnostic lab, but we suspect case it is acute appendicitis. She understands may be also negative appendix. She understa nds this is diagnostic procedure and may not be therapeutic. NAVEEN/TANK Voice ID: [id number]
[2021-04-07] MEDS ORDERED: HYDROMORPHONE HCL 1 MG/ML INJ IV PRN (16:03)
[2021-04-07] MEDS ORDERED: ONDANSETRON 4 MG/2 ML VIAL IV PRN (16:03)
--- NOTE | 2021-04-07 16:13 | P.BOP ---
Preoperative diagnosis: Intractable RLQ abd pain, acute appencitis Postoperative diagnosis: same, right hydrosalpinx, umbilical hernia Primary procedure: 1. Diagnostic laparoscopy, 2. Laparoscopic appendectomy Secondary procedure: 3. laparoscopic lysis of adhesion, 4. open repair umbilical hernia Estimated blood loss: <10cc Specimen: bea, hernia sac Findings: see dicta Anesthesia: General Complications: None Transferred to: Recovery Room Condition: Good
[2021-04-07] MEDS: NA CHLORIDE 0.9% 1,000 ML IV SCH (17:19)
[2021-04-07 17:34] VITALS: BMI 29.5
--- NOTE | 2021-04-07 17:40 | OP ---
Date of Procedure: 04/07/2021 Surgeon: Wally Motta MD Laboratory Supervisor: None. Preoperative Diagnoses: Intractable abdominal pain, acute appendicitis. Postoperative Diagnoses: Acute appendicitis, intraabdominal adhesions, hydrosalpinx, and umbilical h ernia. Procedures: Diagnostic laparoscopy, laparoscopic appendectomy, laparoscopic lysis of adhesions, and open repair of umbilical hernia. Estimated Blood Loss: Less than 10 mL. Findings: The patient has multiple findings on the right lower quadrant, not counting the umbilical hernia, but the patient has intraabdominal adhesions strapping the appendix and the fallopian tube to gether in the right lower quadrant. At this moment, I do not have gynecological evaluation and that doctor is doing the surgery right now. I cannot get her out, but the fallopian tube is inflamed, the adhesions were removed, fallopian tube got freed up and the appendix got freed up, but we will remov e the appendix as it is asymmetrical in shape and color. We took several acute pictures of the area of the multiple ovarian cysts and also the hydrosalpinx and we are going to refer this patient for th e gynecological evaluation. Indication: This is the case of a 40-year-old patient, comes to us with several-day history of right lower quadrant pain. CAT scan shows acute appendicitis with dilated appendix, has questi ons about it. The patient did not get better to get to the primary doctor with acute and intractable abdominal pain, sent to my office, and we have considered surgery due to peritonitis. The benefits, alternatives, and risks of laparoscopic possible open appendectomy were fully explained to the patie nt, which include, but not limited to infection, bleeding, damage to adjacent structures, anesthesia complication, negative appendix, colitis, enteritis, ND, and even . She also understands this m ay not relieve any symptoms. She might need more than one surgical intervention. She understood, si gned a consent. Procedure In Detail: The patient was brought emergently to the operating room, placed in supine posi tion. Anesthesia was done without complication. Abdominal area was prepped and draped in usual ster ile fashion. A time-out was called. The umbilical area was opened. We noticed to have an umbilical hernia with incarcerated omentum. The hernia sac was opened. The hernia sac was removed and the om entum was reduced into the abdominal cavity. We placed Vicryl #1 inside the fascia. Migel trocar w as carefully introduced. Pneumoperitoneum was obtained. I placed 2 more trocars, 5 mm each one of t hem in suprapubic and left lower quadrant. At that moment, we proceeded to do diagnostic lap. Liver anterior and extracapsular shows no masses. Gallbladder, no inflammation. Stomach soft and pratik sible. Small bowel with no extraluminal masses. Large bowel with no extraluminal masses in the pelv is. On the right lower quadrant, we have adhesions probably from the previous that is stra pping and tenting the appendix and the fallopian tube. The appendix looks asymmetrical in shape and color and looks also inflamed. We released the adhesions and the fallopian tube started t o decompress. The appendix is still inflamed, so we created a window in the base of the appendix, tr ansected that with an Endo-YG 45 mm 3.5 and the mesoappendix with an Endo-YG 45 mm 2.5. No bleedin g. No bowel leak. We inspected the area of fallopian tube, looked like it is more decompressed now after adhesions were removed. We are going to leave that area alone. We are going to have to refer her to the impregnator helper. She may end up with a fallopian tube removed, but at this moment cannot be done without evaluation from the impregnator helper. The area was irrigated. No bleeding. We removed the camera under direct visualization, removed the trocars. Deflated pneumoperitoneum. Closed the fasc ia with #1 Vicryl. Irrigated subcutaneous tissue, closed the skin with elke. Sponge count and in strument counts correct. The patient tolerated the procedure well. The patient was sent to recovery in stable condition. The patient will be admitted to the hospital since she is having nausea, vomit ing, and we suspect an ileus and most likely will go home tomorrow and then see her impregnator helper for her gynecological issues that include also ovarian cyst and dilated fallopia n tube. NAVEEN/TANK Voice ID: [id number] Report ID: [id number]
[2021-04-07] MEDS ORDERED: CEFOXITIN 1 GM in NA CHLORIDE 0.9% 100 ML IVPB SCH (18:00)
[2021-04-07] MEDS ORDERED: CEFOXITIN/SWI 1gm 1 GM/10 ML SYR IV SCH (18:00)
[2021-04-07] MEDS: CEFOXITIN/SWI 1gm 1 GM/10 ML SYR IVP SCH (18:03)
[2021-04-07] MEDS: CIPROFLOXACIN 400mg IV 400 MG/200 ML BAG IV SCH (20:47)
[2021-04-07] MEDS: HYDROCODONE/APAP 5/325 MG TAB PO PRN (20:47)
[2021-04-08] MEDS: CEFOXITIN/SWI 1gm 1 GM/10 ML SYR IVP SCH ×2 (00:12→06:00)
[2021-04-08] MEDS: NA CHLORIDE 0.9% 1,000 ML IV SCH (00:12)
[2021-04-08 04:27] LABS: Absolute Lymphocytes (CBC) 0.7 K/uL (0.7-4.9); Basophils % 0.1 % (0-1.3); Hematocrit 34.4 % (36.0-45.0); Lymphocytes % 9.2 % (15.3-44.8); MPV 8.3 fL (7.6-11.3); RBC Red Blood Cell Count 3.83 M/uL (3.86-4.86)
[2021-04-08 04:53] LABS: BUN Blood Urea Nitrogen 9 mg/dL (7-18); Bicarbonate 25 mmol/L (21-32); Glucose Level 116 mg/dL (74-106); Potassium 4.2 mmol/L (3.5-5.1); Sodium Level 140 mmol/L (136-145)
[2021-04-08] MEDS ORDERED: CEFOXITIN SODIUM 1 GM/VIAL ONE (05:50)
[2021-04-08] MEDS: CIPROFLOXACIN 400mg IV 400 MG/200 ML BAG IV SCH (08:05)
[2021-04-08 10:01] VITALS: O2SAT 97
[2021-04-08] MEDS: HYDROCODONE/APAP 5/325 MG TAB PO PRN (12:10)
[2021-04-08 12:38] VITALS: BP 114/56; TEMP 99.1
--- NOTE | 2021-04-08 19:32 | PN ---
Date of Progress Note: 04/08/2021 Diagnoses: Acute appendicitis, right lower quadrant abdominal pain, intraabdominal adhesions, umbili valeriy hernia and hydrosalpinx. Procedures: Diagnostic laparoscopy, laparoscopic appendectomy, laparoscopic lysis of adhesions and r epair of umbilical hernia. History Of Present Illness: This is a case of a 40-year-old patient who comes with at least 5 proble ms on the right lower quadrant. Appendix trapped in adhesions, also trapped between adhes ions causing a kink of appendix, causing abdominal pain for appendicitis and also causing hydrosalpin x. She has adhesions from previous present in that area. She also has a right ovarian cys t. During the surgical intervention, we fixed the appendix, removed the adhesions and fixed umbilica l hernia. The hydrosalpinx when the adhesions were removed start to go back to normal size. We have no consumer experience consultant at that moment available, so we worked the patient off and I discussed the patient w ith Dr. Silver after. We going to have a plan of Levaquin 750 and Flagyl 500 for the next few days . If this does not improve then she might have to go to address the issue of the hydrosalpinx and al so the right ovarian cyst. She will be seeing the patient next week in our office. Currently, goran quick is tolerating diet. No pain, no fever, no shortness of breath. Passing flatus. Chest clear. Ab domen soft and depressible. Intact surgical site. The patient will be discharged home once again on Levaquin, Flagyl and Tylenol No 3. If the pain get worse before this and Dr. Silver might not be available over the weekend, then she may have to find a consumer experience consultant to help with a hydrosalpinx. Desean yanez can also come to our ER. She understood that. She wants to go home and then address that electively. We are going to trying to get her next week with Dr. Silver. HM/MODL Voice ID: [id number] Report ID: [id number]
== END 2021-04-08 15:08 | disposition home or self-care (01) ==
LOC: DS 14:35 → 2ND 16:03
PROVIDERS: ADMIT Surgery; ATTEND Surgery
PROC: 0DTJ4ZZ Resection of Appendix, Percutaneous Endoscopic Approach (ICD-10-PCS; 2021-04-07)
PROC: 0WQF0ZZ Repair Abdominal Wall, Open Approach (ICD-10-PCS; principal; 2021-04-07 15:00)
DX: K35.80 Unspecified acute appendicitis (principal); K42.9 Umbilical hernia without obstruction or gangrene; N70.11 Chronic salpingitis; K66.0 Peritoneal adhesions (postprocedural) (postinfection); E11.9 Type 2 diabetes mellitus without complications
CPT/HCPCS: 85025; 80048; 36415; 82947; 88302; 88304; 94010; 49585; 44970; J2704; J3010; J1100; J0690; J7030 ×3; J0694; J2405; J0744 ×2; G0378; G0379; J2250

== ENCOUNTER 2021-05-09 12:33 | Inpatient (IN) | payer BC ==
[2021-05-09] MEDS ORDERED: IBUPROFEN 600 MG TAB PO PRN (17:42)
[2021-05-09] MEDS ORDERED: KETOROLAC 30 MG/ML INJ IV ONE (18:00)
[2021-05-09 18:10] VITALS: BMI 29.5
[2021-05-09] MEDS: Ringers Lactate 1,000 ML IV SCH (18:23)
[2021-05-09] MEDS: AMPICILLIN/SULBACT 3 GM in NA CHLORIDE 0.9% 100 ML IVPB SCH (18:23)
[2021-05-09] MEDS ORDERED: Ringers Lactate 2,000 ML IV ONE (18:27)
[2021-05-09 18:52] LABS: Absolute Lymphocytes (CBC) 2.1 K/uL (0.7-4.9); Basophils % 0.4 % (0-1.3); Hematocrit 39.1 % (36.0-45.0); Lymphocytes % 29.9 % (15.3-44.8); MPV 7.9 fL (7.6-11.3); RBC Red Blood Cell Count 4.35 M/uL (3.86-4.86)
[2021-05-09 19:05] LABS: BUN Blood Urea Nitrogen 13 mg/dL (7-18); Bicarbonate 26 mmol/L (21-32); Glucose Level 87 mg/dL (74-106); Potassium 3.6 mmol/L (3.5-5.1); Sodium Level 141 mmol/L (136-145)
[2021-05-09] MEDS ORDERED: METRONIDAZOLE 500mg IVPB 1,000 MG/200 ML BAG IV ONE (20:10)
--- NOTE | 2021-05-09 20:38 | RAD REPORT ---
EXAM DESCRIPTION: CTAbdomen Pelvis W Contrast - 05/09/2021 8:10 pm CLINICAL HISTORY: Abdominal pain. fluid? presurgical exam COMPARISON: Abdomen Pelvis W Contrast dated 04/06/2021 TECHNIQUE: Biphasic CT imaging of the abdomen and pelvis was performed with 100 ml non-ionic IV cont rast. All CT scans are performed using dose optimization technique as appropriate and may include automated exposure control or mA/KV adjustment according to patient size. FINDINGS: The lung bases are clear. The liver, spleen, pancreas, adrenal glands and kidneys are within normal limits. No bowel obstruction, free air, free fluid or abscess. Appendectomy. No evidence of significant lym phadenopathy. No suspicious bony findings. No significant free fluid is seen in the pelvis. Small tubular structure in the right adnexal region measuring 26 x 15 mm could conceivably represent mild hydrosalpinx. IMPRESSION: No acute intra-abdominal or pelvic finding. No significant pelvic free fluid. Small tubular structure in the right adnexal region could potentially represent a mild hydrosalpinx.
[2021-05-09] MEDS: METRONIDAZOLE 500mg IVPB 500 MG/100 ML BAG IV SCH (20:50)
[2021-05-09 21:47] LABS: Urine Appearance CLEAR (Clear); Urine Bilirubin NEGATIVE (Negative); Urine Blood NEGATIVE (Negative); Urine Color YELLOW (Yellow); Urine Glucose NEGATIVE (Negative); Urine Protein NEGATIVE (Negative); Urine Specific Gravity >=1.030 (1.005-1.030); Urine Urobilinogen 0.2 mg/dL (0.2-1.0); Urine pH 7.5 (5.0-7.0)
[2021-05-09 22:11] LABS: Urine Bacteria <20 /HPF (<20); Urine RBC NONE SEEN /HPF (NONE SEEN)
[2021-05-10] MEDS: AMPICILLIN/SULBACT 3 GM in NA CHLORIDE 0.9% 100 ML IVPB SCH ×4 (00:23→18:12)
[2021-05-10] MEDS: Ringers Lactate 1,000 ML IV SCH (03:32)
[2021-05-10] MEDS: METRONIDAZOLE 500mg IVPB 500 MG/100 ML BAG IV SCH ×2 (04:50→20:00)
[2021-05-10] MEDS ORDERED: ROCURONIUM 50 MG/5 ML VIAL IV ONE ×2 (11:22→12:39)
[2021-05-10] MEDS ORDERED: propofoL 200 MG/20 ML VIAL IV ONE (11:22)
[2021-05-10] MEDS ORDERED: GLYCOPYRROLATE 0.2 MG/ML SYR ONE (11:22)
[2021-05-10] MEDS ORDERED: MIDAZOLAM HCL 2 MG/2 ML INJ ONE (11:23)
[2021-05-10] MEDS ORDERED: LIDOCAINE 2% MPF 5 ML VIAL ONE (11:23)
[2021-05-10] MEDS ORDERED: FENTANYL CITR 250 MCG/5 ML ONE (11:23)
[2021-05-10] MEDS ORDERED: ONDANSETRON 4 MG/2 ML VIAL ONE (11:25)
[2021-05-10] MEDS ORDERED: dexAMETHasone 10 MG/ML VIAL ONE (11:25)
[2021-05-10] MEDS ORDERED: KETOROLAC 30 MG/ML INJ ONE (11:26)
[2021-05-10] MEDS ORDERED: NA CHLORIDE 0.9% 1,000 ML ONE ×2 (11:38→11:44)
[2021-05-10] MEDS ORDERED: BUPIVACAINE 0.25% PF 30 ML VIAL ONE (11:39)
[2021-05-10] MEDS ORDERED: Ringers Lactate 1,000 ML IV ONE (11:39)
[2021-05-10] MEDS ORDERED: METRONIDAZOLE 500mg IVPB 500 MG/100 ML BAG IV ONE (12:06)
[2021-05-10] MEDS ORDERED: EPHEDRINE SULF 50 MG/ML VIAL ONE (12:34)
[2021-05-10] MEDS: Ringers Lactate 1,000 ML IV ONE ×2 (12:41→13:01)
[2021-05-10 13:49] VITALS: O2SAT 100
[2021-05-10] MEDS ORDERED: SCOPOLAMINE HYDROBROMIDE PATCH TD ONE (13:55)
[2021-05-10] MEDS ORDERED: HYDROMORPHONE HCL 1 MG/ML INJ ONE (13:58)
[2021-05-10] MEDS ORDERED: HYDROCODONE/APAP 5/325 MG TAB PO PRN (14:26)
[2021-05-10] MEDS ORDERED: PROMETHAZINE INJ 25 MG/ML AMP IV PRN (14:26)
--- NOTE | 2021-05-10 14:32 | P.BOP ---
Preoperative diagnosis: pelvic pain, rt hydrosalpinx,menorrhagia Postoperative diagnosis: pelvic pain, bilateral hydrosalpinges, adhesions, umb hernia Primary procedure: laparoscopy bilat salpingectomy LOAomentum 20min Secondary procedure: diag hsyteroscopy d/c Door Operator: DANITA ROUSE Estimated blood loss: min Specimen: bilateral tubes and EMC Findings: significant bilat hydrosalpinges, no endo seen, appy stump normal, umb ismael Anesthesia: General Complications: None Transferred to: Recovery Room Condition: Good
[2021-05-10] MEDS ORDERED: MEPERIDINE HCL 50 MG/ML IV PRN (15:16)
[2021-05-10] MEDS: IBUPROFEN 600 MG TAB PO SCH ×2 (16:00→22:06)
[2021-05-10] MEDS ORDERED: METFORMIN HCL 500 MG TAB PO SCH (17:00)
--- NOTE | 2021-05-10 17:58 | OP ---
Date of Procedure: 05/10/2021 Surgeon: Yara Silver MD Learning Specialist: Leilani Erwin. Preoperative Diagnoses: Pelvic pain, right hydrosalpinx, menorrhagia, status post appendectomy 1 mon th ago. Postoperative Diagnoses: Pelvic pain, bilateral hydrosalpinges, adhesions of the omentum to the ante rior abdominal wall, umbilical hernia in the infraumbilical area. Procedures Performed: Laparoscopy, bilateral salpingectomy, lysis of omental adhesions that took at least 20 minutes and adhesions of the omentum going through the hernia site, diagnostic hysteroscopy and dilation and curettage. Anesthesia: General endotracheal. Ebl: Minimal. Specimens: Bilateral tubes and endometrial curettings. Condition: Stable. Findings: Bilateral significant hydrosalpinges. No endometriosis was seen. in the poste rior cul-de-sac on the right side. Appendectomy stump was normal. Umbilical hernia with adhesions i n the infraumbilical area. The omentum was the content which was reduced. Description Of Procedure: After informed consent was verified, the patient was taken back to OR, neo robb in a supine fashion on the operating table. General anesthesia was given. Placed in a dorsal li thotomy position. She had Unasyn and Flagyl per the schedule. She was placed in dorsal lithotomy po sition. Abdomen, vulva, vagina and perineum were prepped and draped in a sterile fashion. Harrington was placed to drain the bladder. Speculum placed to expose the cervix. Anterior lip grasped with 2 All is clamps. Diagnostic SlimLine hysteroscope was used for hysteroscopy. The endometrial cavity appea red to be unremarkable. Thickened endometrium. No masses. Scope removed. VCare placed. This area was draped. 1 cm supraumbilical incision made with a scalpel. Fascia incised. The peritoneum entered bluntly. S-retractors placed. Migel introduced. Site of entry was checked, unremarkable. Infraumbilical ar ea with omental contents and a hernia. The contents of the hernia were dissected and reduced later. Once the hernia was seen and the omental adhesions were seen in the left lower quadrant as well as t he umbilical area and in the old scar area, then immediately a left lower quadrant port was placed. Then, the LigaSure was used to take down the adhesions. She was placed in Trendelenburg. Picture was taken down to take the adhesions in the systematic pattern by creating windows and taking them down with the LigaSure. Once all this was dropped, the left lower quadrant adhesions were take n down as well. The uterus was lifted out. Bilateral hydrosalpinges were significant and very promi nent. The ovaries were completely unremarkable. The stump of the appendix unremarkable. Upper abdo jaydon surface was unremarkable as well. No endometriosis. in the right cul-de-sac. On v isualization closely, there was no endometriosis seen. All peritoneal surfaces very meticulously exa mined and negative for endo. Then, LigaSure was taken and the mesosalpinx was taken down from the fimbriated end to the cornual en d and the specimen was detached on the left side, then on the right side from the cornual end all the way to the fimbriated end and both specimens were placed in the anterior cul-de-sac. The specimen b ag introduced through the umbilical port and the specimen was retrieved through here. Thorough irrig ation and suction were performed. There was excellent hemostasis and there was no other pathology no gurdeep. Trocars were removed under direct vision. Gas was desufflated. Omentum taken down was visuali zed and irrigated for any bleeding and this was completely hemostatic as well. The gas was desufflat ed. Umbilical port was removed after the two 5 ports were removed. Then, the umbilical port was carmelo sed with the tag 0 Vicryl sutures to pull up and then good bites were taken as a efitzb-sj-apasu with 0 Vicryl using this tension and then the tag sutures were removed and the [id number] was tied t o close the incision here at the fascia. The subcutaneous tissues were brought together with a simpl e 0 Vicryl stitch and 4-0 Vicryl to close the skin. Both ports on the left and suprapubic were all i njected with Marcaine both at the fascia and skin as well as the umbilical site having closed with 4- 0 Vicryl. D and C was performed after the VCare was removed and Harrington was removed. Instrument, need le, and sponge counts were correct at the end of the case. The patient was taken back to the PACU in stable condition. She will remain in the hospital for IV antibiotics for another 24 hours. WENDI/TANK Voice ID: [id number] Report ID: [id number]
[2021-05-11] MEDS: AMPICILLIN/SULBACT 3 GM in NA CHLORIDE 0.9% 100 ML IVPB SCH ×4 (00:05→18:49)
[2021-05-11] MEDS: IBUPROFEN 600 MG TAB PO SCH ×2 (03:58→10:03)
[2021-05-11] MEDS: METRONIDAZOLE 500mg IVPB 500 MG/100 ML BAG IV SCH ×3 (04:00→18:25)
[2021-05-11] MEDS: METFORMIN HCL 500 MG TAB PO SCH ×2 (07:57→08:00)
[2021-05-11] MEDS: Ringers Lactate 1,000 ML IV SCH ×2 (10:37→21:38)
[2021-05-11] MEDS ORDERED: AMPICILLIN/SULBACT 3 GM in NA CHLORIDE 0.9% 100 ML IVPB SCH ×4 (19:00)
[2021-05-12] MEDS: AMPICILLIN/SULBACT 3 GM in NA CHLORIDE 0.9% 100 ML IVPB SCH (00:23)
[2021-05-12] MEDS: METRONIDAZOLE 500mg IVPB 500 MG/100 ML BAG IV SCH ×2 (01:51→08:47)
[2021-05-12] MEDS: METFORMIN HCL 500 MG TAB PO SCH (08:00)
[2021-05-12 08:06] VITALS: BP 124/80; TEMP 98.2
== END 2021-05-12 10:59 | disposition home or self-care (01) | DRG 743 ==
LOC: 2ND-WC 16:37 → INTOOBSV 16:37 → OBSVTOIN 05-11 13:43
PROVIDERS: ADMIT Obstetrics & Gynecology; ATTEND Obstetrics & Gynecology
PROC: 0DNU4ZZ Release Omentum, Percutaneous Endoscopic Approach (ICD-10-PCS; 2021-05-10)
PROC: 0UDB8ZX Extraction of Endometrium, Via Natural or Artificial Opening Endoscopic, Diagnostic (ICD-10-PCS; 2021-05-10)
PROC: 0UT74ZZ Resection of Bilateral Fallopian Tubes, Percutaneous Endoscopic Approach (ICD-10-PCS; principal; 2021-05-10 14:30)
DX: N70.11 Chronic salpingitis (principal); R10.2 Pelvic and perineal pain; N92.0 Excessive and frequent menstruation with regular cycle; N83.8 Other noninflammatory disorders of ovary, fallopian tube and broad ligament; Z20.822 Contact with and (suspected) exposure to COVID-19; K66.0 Peritoneal adhesions (postprocedural) (postinfection); K42.9 Umbilical hernia without obstruction or gangrene
CPT/HCPCS: 36415; 74177; 80048; 81001; 82947; 83036; 84703; 85025; 86850; 86900; 86901; 88302; 88305; 94010; G0378; G0379; J0295; J1100; J1170; J2250; J2405; J2704; J3010; J7030; J7120; U0003

== ENCOUNTER 2021-09-20 09:45 | Day surgery (SDC) | payer BC ==
[2021-09-20 09:17] LABS: Urine Appearance CLEAR (Clear); Urine Bilirubin NEGATIVE (Negative); Urine Blood NEGATIVE (Negative); Urine Color YELLOW (Yellow); Urine Glucose NEGATIVE (Negative); Urine Microscopic Reflex NO UMIC; Urine Protein NEGATIVE (Negative); Urine Urobilinogen 0.2 mg/dL (0.2-1.0)
[2021-09-20 09:23] LABS: Absolute Lymphocytes (CBC) 2.1 K/uL (0.7-4.9); Basophils % 0.7 % (0-1.3); Hematocrit 38.9 % (36.0-45.0); MPV 7.7 fL (7.6-11.3); RBC Red Blood Cell Count 4.37 M/uL (3.86-4.86)
[2021-09-20] MEDS ORDERED: NA CHLORIDE 0.9% 1,000 ML ONE ×2 (09:51→16:19)
[2021-09-20] MEDS ORDERED: SCOPOLAMINE HYDROBROMIDE PATCH TD ONE (09:51)
[2021-09-20] MEDS ORDERED: D50W 50 ML IV ONE ×2 (11:12→15:27)
[2021-09-20] MEDS ORDERED: propofoL 200 MG/20 ML VIAL IV ONE ×2 (12:12→16:06)
[2021-09-20] MEDS ORDERED: FENTANYL CITR 100 MCG/2 ML ONE (12:12)
[2021-09-20] MEDS ORDERED: MIDAZOLAM HCL 2 MG/2 ML INJ ONE (12:12)
[2021-09-20] MEDS ORDERED: LIDOCAINE 1% MPF 5 ML VIAL ONE (12:12)
[2021-09-20] MEDS ORDERED: dexAMETHasone 10 MG/ML VIAL ONE (12:13)
[2021-09-20] MEDS ORDERED: ROCURONIUM 50 MG/5 ML VIAL IV ONE (12:13)
[2021-09-20] MEDS ORDERED: KETOROLAC 30 MG/ML INJ ONE (12:13)
[2021-09-20] MEDS ORDERED: ONDANSETRON 4 MG/2 ML VIAL ONE (12:15)
[2021-09-20] MEDS ORDERED: Ringers Lactate 1,000 ML IV ONE (14:02)
[2021-09-20] MEDS: BUPIVACAINE 0.25% PF 10 ML VIAL ONE ×3 (14:12→16:14)
[2021-09-20] MEDS: CEFAZOLIN/SWI 2gm 2 GM/20 ML SYR ONE ×3 (14:13→15:45)
[2021-09-20] MEDS ORDERED: GLYCOPYRROLATE 0.2 MG/ML SYR ONE ×2 (15:12→17:54)
[2021-09-20] MEDS ORDERED: EPHEDRINE SULF 50 MG/ML VIAL ONE (16:14)
[2021-09-20] MEDS ORDERED: NS 0.9% VIAL 10 ML ONE (17:15)
[2021-09-20] MEDS ORDERED: VECURONIUM 10 MG/VIAL IV ONE (17:15)
[2021-09-20] MEDS ORDERED: NEOSTIGMINE 1 MG/ML -5 ML ONE (18:04)
[2021-09-20] MEDS ORDERED: IBUPROFEN 200 MG TAB PO PRN (18:14)
[2021-09-20] MEDS ORDERED: HYDROCODONE/APAP 5/325 MG TAB PO PRN (18:14)
[2021-09-20] MEDS ORDERED: MEPERIDINE HCL 25 MG/ML SYR IM PRN (18:14)
[2021-09-20] MEDS ORDERED: PROMETHAZINE INJ 25 MG/ML AMP IV PRN (18:14)
--- NOTE | 2021-09-20 18:17 | P.BOP ---
Preoperative diagnosis: menorrhagia Postoperative diagnosis: same Primary procedure: TLH cysto Body Masker: Jodi Thacker Estimated blood loss: min Specimen: uterus Findings: enlarged uterus, normal bladder patent ureters Anesthesia: General Complications: None Fluids & blood products: 1300, uo 200 Transferred to: Recovery Room Condition: Good
[2021-09-20] MEDS ORDERED: Mastisol Adhesive Liq ONE (18:52)
[2021-09-20] MEDS: HYDROMORPHONE HCL 1 MG/ML INJ ONE ×2 (19:05→19:53)
[2021-09-20 19:56] VITALS: O2SAT 98
[2021-09-20 21:02] VITALS: BP 110/55; TEMP 97
[2021-09-21] MEDS ORDERED: METFORMIN HCL 500 MG TAB PO SCH (08:00)
[2021-09-21] MEDS ORDERED: FERROUS SULFATE 325 MG TAB PO SCH (09:00)
[2021-09-21] MEDS ORDERED: ASCORBIC ACID 500 MG TABLET PO SCH (09:00)
[2021-09-21] MEDS ORDERED: CYANOCOBALAMIN 1000MCG/ML INJ IM SCH (09:00)
--- NOTE | 2021-09-21 21:00 | OP ---
Date of Procedure: 09/20/2021 Surgeon: Yara Silver MD Environmental Specialist: Jodi Childers. Preoperative Diagnosis: Menorrhagia. Postoperative Diagnosis: Menorrhagia. Procedures Performed: Total laparoscopic hysterectomy, cystoscopy. Anesthesia: General. Estimated Blood Loss: Minimal. Specimens: Uterus. Complications: No complications. Drains: No drains. Condition: Stable. Urine Output: 200. Fluids: LR 1300. Findings: Enlarged uterus, inflammation of the bladder flap, normal bladder and patent ureters on cy stoscopy and ovaries appeared to be unremarkable. Tubes removed in the past. Disposition: The patient was recovered from anesthesia in stable condition, taken to PACU in stable condition. Procedure In Detail: After informed consent was verified, the patient was taken back to the OR, plac ed in a supine fashion on the operating table. 2 g of Ancef were given. SCDs were placed. She was given general anesthesia and placed in a dorsal lithotomy position using Shlomo stirrups. Lower abdom en, vulva, vagina, and perineum were prepped and draped in a sterile fashion. Harrington was placed to dr andrewsn the bladder and VCare was attempted to be placed, which was difficult after doing the laparoscopy . Then, the VCare was introduced into the uterus without any problems. Harrington was attached for retrograde filling of the bladder. 1 cm infraumbilical incision was made with a scalpel using the open laparoscopy technique. Fascia wa s incised, tagged with 0 Vicryl sutures. Peritoneum entered sharply. S-retractors were placed and a fter adequate insufflation, the patient was placed in Trendelenburg after inspecting the upper abdomi nal surfaces, which were unremarkable. The site of the appendix removal was also unremarkable. The patient was placed in full Trendelenburg. 10 suprapubic and 5 left lower quadrant ports were placed under direct vision. After complete examination of the pelvic cavity, no evidence of any endometrios is. The ovaries were normal and the ureters were unremarkable and undisplaced. Picture was taken. Utero-ovarian ligament was taken down, round ligament taken down. Anterior broad ligament opened up all the way to the bladder flap. There were significant adhesions at this level and the tissue appeared to be slightly friable and edematous. Careful dissection was performed after filling the bladder and draining it to julian its borders and carefully reflecting the vesicovaginal s pace and opening up the rest of the bladder flap posteriorly. Peritoneum was taken down to the left uterosacral and broad ligament taken down to skeletonize the vessels. Vessels were then cauterized, but not cut. Went down the opposite side, similar dissection was done on the utero-ovarian ligament, round ligament, broad ligament exposing the vessels connecting the bladder flap and posterior perito neum to the uterosacral ligament and vessels were identified. These vessels were cauterized. The ve sicovaginal space was entered by using a monopolar hook blade and then dissecting the bladder down. This was carefully done as the edematous aspect of the anterior vaginal wall appeared to be causing s ome difficulty in smoothly retracting back in the bladder inferiorly. Once the anterior vaginal wall was well exposed, then the vessels on the right side were cauterized a nd cut with bipolar and the LigaSure. Then, the cardinal ligaments were taken down with the LigaSure as well. Then on the opposite side, left side similar dissection was taken by taking down the vesse ls and the cardinal ligaments. Then monopolar was used to perform a circumferential colpotomy leavin g the uterosacral still attached to the posterior aspect of the top of the vaginal cuff. The specime n was retrieved through the vagina although it was tight fit. It was able to be pulled out through t he vaginal canal. Then, vaginal occluder was placed. Thorough irrigation and suction were performed of the vaginal cuff. Then 2-0 Vicryl sutures were neo robb at both angles and tied outside the angle, then V-Loc 2-0 was taken and closed in 2 layers, vagin al epithelial layer first with connective tissue and then the connective tissue layer. The rectovagi nal septum and anterior vaginal fascia brought together with good closure and the uterosacral ligamen ts were resuspended to the vaginal apex. Thorough irrigation and suction were performed. No evidence of electrical, mechanical, or thermal in jury to the ureters. The trocars were removed under direct vision after patient was flattened and ga s was desufflated. There was bleeding from the suprapubic site significantly that I was concerned th at I wanted to make sure that there was no bladder perforation. So, this area was cauterized from th e peritoneal cavity to the preperitoneal tissues. Then, once this was done, cystoscopy was performed with a 17-Mozambican sheath, 30-degree lens normal saline. The bladder was fully distended and the dome of the bladder was visualized. No evidence of any trauma here or foreign body. Then, bladder was d rained after visualizing strong jets of urine from both ureteric orifices. We then went back up and closed the fascia at the suprapubic site and there was some bleeding here, w hich was cauterized and then closure was done. The fascia at the umbilicus closed with the help of 0 Vicryl sutures tied to each other. Then 3-0 chromic was used to close the subcutaneous skin incisio ns. The vaginal occluder and Harrington were removed. Instrument, needle, and sponge counts were done and wer e correct in the case. The patient recovered from anesthesia and taken to PACU in stable condition. WENDI/TANK Voice ID: [id number] Report ID: [id number]
== END 2021-09-20 22:35 | disposition home or self-care (01) ==
LOC: OR 09:45 → 2ND-WC 19:25 → OR 22:35
PROVIDERS: ATTEND Obstetrics & Gynecology
PROC: 0UT94ZZ Resection of Uterus, Percutaneous Endoscopic Approach (ICD-10-PCS; principal; 2021-09-20 13:00)
DX: N92.0 Excessive and frequent menstruation with regular cycle (principal); D25.9 Leiomyoma of uterus, unspecified; N88.8 Other specified noninflammatory disorders of cervix uteri; Z20.822 Contact with and (suspected) exposure to COVID-19
CPT/HCPCS: 85025; 36415; 86900; 86850; 81025; 86901; 82947 ×4; 88307; 81003; 58570; U0003; J2704 ×2; J2250; J3010; J1100; J1170; J2710; J0690; J7120; J7030 ×2; J2405

== ENCOUNTER 2022-08-25 13:35 | Emergency (ER) | payer BC ==
[2022-08-25] MEDS ORDERED: CYCLOBENZAPRINE 10 MG TAB ONE (16:00)
[2022-08-25] MEDS ORDERED: KETOROLAC 30 MG/ML INJ ONE (16:00)
--- NOTE | 2022-08-25 16:10 | EDPHYS ---
Physician Documentation [facility] Name: Sal Lindsey Age: 42 yrs Sex: Female : 1980 Arrival Date: 08/25/2022 Time: 13:38 Bed 27 Private MD: Giovany Biggs ED Physician Jose Mascorro HPI: 08/25 15:31 This 42 yrs old Female presents to ER via Ambulatory with complaints of Back jmm Pain. 15:31 The patient presents with pain that is acute. Onset: The symptoms/episode jmm began/occurred gradually. 16:07 Associated signs and symptoms: Pertinent negatives: abdominal pain, chest pain, jmm constipation, dysuria, fever, headache, hematuria, incontinence, nausea, numbness, tingling, urinary retention, vomiting, weakness. This is a 42-year-old female with history of diabetes mellitus the presents emerged part with complaints of lower back pain which radiates down the right leg. Denies similar episodes in the past. Denies any recent injury. Denies urinary or bowel issues. Denies fever, denies vomiting. Denies abdominal pain. 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 - Social history:: Smoking status: Patient denies any tobacco usage or history of. ROS: 16:07 Constitutional: Negative for fever, chills, and weight loss, Cardiovascular: Negative jmm for chest pain, palpitations, and edema, Respiratory: Negative for shortness of breath, cough, wheezing, and pleuritic chest pain. 16:07 Abdomen/GI: Negative for abdominal pain. 16:07 Back: Positive for pain with movement. 16:07 All other systems are negative. Exam: 16:07 Constitutional: This is a well developed, well nourished patient who is awake, alert, jmm and in no acute distress. Head/Face: atraumatic. Eyes: EOMI, no conjunctival erythema appreciated ENT: Moist Mucus Membranes Neck: Trachea midline, Supple Chest/axilla: Normal chest wall appearance and motion. Cardiovascular: Regular rate and rhythm. No edema appreciated Respiratory: Normal respirations, no respiratory distress appreciated Abdomen/GI: Non distended 16:07 Back: pain, that is mild, ROM is normal. 16:07 Back: pain. 16:07 Neuro: Orientation: is normal, Mentation: is normal, Memory: is normal, Extensor hallucis longus intact bilaterally. 16:07 Psych: Behavior/mood is pleasant, cooperative. Vital Signs: 15:17 BP 102 / 78; Pulse 70; Resp 16; Temp 98.2; Pulse Ox 100% ; Weight 90.72 kg; Height 5 vg1 ft. 9 in. (175.26 cm); Pain 10/10; 15:17 Body Mass Index 29.53 (90.72 kg, 175.26 cm) vg1 MDM: 15:31 Patient medically screened. [facility] 16:09 Data reviewed: vital signs, nurses notes. Counseling: I had a detailed discussion with asaf the patient and/or guardian regarding: the historical points, exam findings, and any diagnostic results supporting the discharge/admit diagnosis, the need for outpatient follow up, to return to the emergency department if symptoms worsen or persist or if there are any questions or concerns that arise at home. ED course: Physical exam is consistent with sciatica. I do not currently suspect cord compression or cauda equina. Patient advised follow-up PCP otherwise given strict return precautions. Patient understood and agrees plan of care.. Administered Medications: 16:04 Drug: Ketorolac 30 mg Route: IM; Site: right deltoid; hb 16:04 Drug: Flexeril (cyclobenzaprine) 10 mg Route: PO; hb Disposition Summary: 08/25/22 16:10 Discharge Ordered Location: Home [facility] Condition: Stable [facility] Diagnosis - Lumbago with sciatica, right side [facility] Followup: asaf - With: Giovany Biggs MD - When: 2 - 3 days - Reason: Recheck today's complaints, Continuance of care, Re-evaluation by your physician Discharge Instructions: - Discharge Summary Sheet asaf - Sciatica Rehab-SportsMed [facility] Forms: - Medication Reconciliation Form asaf - Thank You Letter asaf - Antibiotic Education jmm - Prescription Opioid Use [facility] Prescriptions: - Zanaflex 4 mg Oral Tablet - take 1 tablet by ORAL route every 8 hours As needed; 20 tablet; Refills: 0, [facility] Product Selection Permitted - Diclofenac Sodium 75 mg Oral Tablet Sustained Release - take 1 tablet by ORAL route 2 times per day; 30 tablet; Refills: 0, Product [facility] Selection Permitted Addendum: 08/27/2022 13:36 Co-signature as Attending Physician, Jose Mascorro MD I agree with the assessment and c mccoy plan of care. Signatures: Jose Mascorro MD MD cha Mickail, Joel, PA PA jmm Baxter, Heather, RN RN Isabel Billy RN RN vg1
--- NOTE | 2022-08-25 16:10 | ER ---
Nurse's Notes [facility] Name: Sla Lindsey Age: 42 yrs Sex: Female : 1980 Arrival Date: 08/25/2022 Time: 13:38 Bed 27 Private MD: Giovany Biggs Diagnosis: Lumbago with sciatica, right side Presentation: 08/25 15:17 Chief complaint: Patient states: back pain that began yesterday morning, denies injury. vg1 Stated woke up with back pain. Denies S/S of urine. Coronavirus screen: Vaccine status: Patient reports being unvaccinated. Client denies travel out of the [place] in the last 14 days. Ebola Screen: Patient negative for fever greater than or equal to 101.5 degrees Fahrenheit, and additional compatible Ebola Virus Disease symptoms. Initial Sepsis Screen: Does the patient meet any 2 criteria? No. Patient's initial sepsis screen is negative. Does the patient have a suspected source of infection? No. Patient's initial sepsis screen is negative. Risk Assessment: Do you want to hurt yourself or someone else? Patient reports no desire to harm self or others. Onset of symptoms was August 24, 2022. 15:17 Method Of Arrival: Ambulatory vg1 15:17 Acuity: SABRINA 4 vg1 Triage Assessment: 15:19 General: Appears uncomfortable, Behavior is calm, cooperative. Pain: Complains of pain vg1 in back Pain currently is 10 out of 10 on a pain scale. Pain began 1 day ago. Musculoskeletal: Circulation, motion, and sensation intact. 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 - Social history:: Smoking status: Patient denies any tobacco usage or history of. Vital Signs: 15:17 BP 102 / 78; Pulse 70; Resp 16; Temp 98.2; Pulse Ox 100% ; Weight 90.72 kg; Height 5 vg1 ft. 9 in. (175.26 cm); Pain 10/10; 15:17 Body Mass Index 29.53 (90.72 kg, 175.26 cm) vg1 ED Course: 13:38 Patient arrived in ED. mr 13:38 Giovany Biggs MD is Private Physician. mr 15:19 Triage completed. vg1 15:19 Arm band placed on. 1 15:20 Evert Felder PA is PHCP. [facility] 15:20 Jose Mascorro MD is Attending Physician. [facility] 15:58 Roxy Brooks, RN is Primary Nurse. hb 16:10 Giovany Biggs MD is Referral Physician. [facility] Administered Medications: 16:04 Drug: Ketorolac 30 mg Route: IM; Site: right deltoid; hb 16:04 Drug: Flexeril (cyclobenzaprine) 10 mg Route: PO; hb Outcome: 16:10 Discharge ordered by . [facility] 16:53 Patient left the ED. Signatures: Evert Felder PA PA jmm Rivera, Mary mr Roxy Brooks, RN RN Isabel Billy, RN RN vg1
[2022-08-25 17:00] VITALS: BP 102/78; TEMP 98.2; O2SAT 100
== END 2022-08-25 16:53 | disposition home or self-care (01) ==
LOC: ER 13:35
DX: M54.41 Lumbago with sciatica, right side (principal); E11.9 Type 2 diabetes mellitus without complications
CPT/HCPCS: 96372; 99282